=== PATIENT | male | born 1975 | race American Indian/Alaskan Native ===

== ENCOUNTER 2016-10-31 15:25 | Inpatient (IN) | payer MEDICAID ==
[2016-10-31 15:34] VITALS: BMI 35.3
--- NOTE | 2016-10-31 16:08 | RAD ---
HISTORY: Detox/Psy COMPARISON: No prior. TECHNIQUE: Chest PA and lateral FINDINGS: LUNGS: No active pulmonary disease. PLEURA: No significant pleural effusion identified. No pneumothorax apparent. CARDIOVASCULAR: Normal. OSSEOUS STRUCTURES: No significant abnormalities. VISUALIZED UPPER ABDOMEN: Normal. OTHER FINDINGS: None. IMPRESSION: No active disease.
--- NOTE | 2016-10-31 16:34 | C.PDOC ---
History Of Present Illness 41yo male, PMHx includes Heroin abuse, presents to the emergency department pre- screened for detox with complaints of leg swelling; Patient was referred outpatient for pedal edema, and started on lasix that he is taking without relief. Patient notes that he was evaluated by a environmental health manager yesterday and had a stress test, that was positive for ischemic changes. Patient pending approval for echocardiogram and nuclear stress test. States leg swelling continues. Denies nausea/vomiting, chest pain or SOB. On pre-screening questioning it was noted that he is having hallucinations both when under the influence of drugs and when sober. He has had psychiatric hospitalizations in the past. Time Seen by Provider: 10/31/16 15:46 Chief Complaint (Nursing): Substance Abuse History Per: Patient History/Exam Limitations: no limitations Onset/Duration Of Symptoms: Days Current Symptoms Are (Timing): Still Present Past Medical History Reviewed: Historical Data, Nursing Documentation, Vital Signs Vital Signs: Last Vital Signs Temp 98.2 F 10/31/16 15:36 Pulse 83 10/31/16 15:36 Resp 18 10/31/16 15:36 BP 137/80 10/31/16 15:36 Pulse Ox 100 10/31/16 18:15 Family History: States: No Known Family Hx - Social History Hx Alcohol Use: No Hx Substance Use: No - Immunization History Hx Tetanus Toxoid Vaccination: No Hx Influenza Vaccination: No Hx Pneumococcal Vaccination: No Review Of Systems Except As Marked, All Systems Reviewed And Found Negative. Constitutional: Negative for: Fever, Chills Cardiovascular: Positive for: Edema. Negative for: Chest Pain, Palpitations Respiratory: Negative for: Cough, Shortness of Breath Gastrointestinal: Negative for: Nausea, Vomiting Musculoskeletal: Negative for: Back Pain Skin: Negative for: Rash Neurological: Negative for: Weakness, Numbness, Headache, Dizziness Physical Exam - Physical Exam Appears: Non-toxic, No Acute Distress Skin: Warm, Dry, No Rash Head: Atraumatic, Normacephalic Eye(s): bilateral: Normal Inspection, PERRL, EOMI Nose: Normal Neck: Normal ROM Cardiovascular: Rhythm Regular Respiratory: Normal Breath Sounds Gastrointestinal/Abdominal: Normal Exam Back: Normal Inspection Extremity: Pedal Edema (B/L (+)2, pitting.) Neurological/Psych: Oriented x3 ED Course And Treatment - Laboratory Results Result Diagrams: 10/31/16 16:39 06/07/17 16:39 Lab Interpretation: Normal ECG: Interpreted By Me ECG Rhythm: Sinus Rhythm ECG Interpretation: Normal O2 Sat by Pulse Oximetry: 100 Pulse Ox Interpretation: Normal - Radiology CXR: Interpreted by Me CXR Interpretation: Yes: No Acute Disease Reevaluation Time: 18:18 Reassessment Condition: Unchanged (Patient remains comfortable and cooperative in ED.) - Physician Consult Information Time Consulting Physician Contacted: 18:18 Physician Contacted: Kellee Marcelo Outcome Of Conversation: He will admit for medical cardiac clearance and will consult psychiatry. Disposition - Disposition Disposition: HOSPITALIZED Disposition Time: 18:19 Condition: STABLE - POA Present On Arrival: None - Clinical Impression Clinical Impression: Peripheral edema, Cardiac ischemia, Heroin abuse, Hallucinations - Scribe Statement The provider has reviewed the documentation as recorded by the Nehal Bartholomew All medical record entries made by the Dreibe were at my direction and personally dictated by me. I have reviewed the chart and agree that the record accurately reflects my personal performance of the history, physical exam, medical decision making, and the department course for this patient. I have also personally directed, reviewed, and agree with the discharge instructions and disposition.
[2016-10-31 16:43] LABS: BASO % 0.6 % (0.0-2.0); EOS # 0.1 K/uL (0.0-0.7); EOS % 1.7 % (0.0-4.0); HEMATOCRIT 38.4 % (35.0-51.0); LYMPH # 2.1 K/uL (1.0-4.3); LYMPH % 33.3 % (20.0-40.0); MEAN CELL VOLUME 93.7 fL (80.0-94.0); MEAN CORPUSCULAR HGB CONC 33.1 g/dL (33.0-37.0); MEAN PLATELET VOLUME 9.4 fL (7.2-11.7); MONO # 0.5 K/uL (0.0-0.8); MONO % 8.4 % (0.0-10.0); RED CELL DISTRIBUTION WIDTH 15.2 % (11.5-14.5); WHITE BLOOD COUNT 6.4 K/uL (4.8-10.8)
[2016-10-31 16:45] LABS: URINE BILIRUBIN NEGATIVE (NEGATIVE); URINE BLOOD NEGATIVE (NEGATIVE); URINE COLOR Straw (YELLOW); URINE GLUCOSE (UA) NORMAL (Normal); URINE KETONE NEGATIVE (NEGATIVE); URINE LEUKOCYTE ESTERASE NEG Leu/uL (Negative); URINE PROTEIN NEGATIVE (NEGATIVE); URINE UROBILINOGEN NORMAL mg/dL (0.2-1.0)
[2016-10-31 16:51] LABS: CHLORIDE 103 mmol/L (98-107)
[2016-10-31 16:52] LABS: POTASSIUM 3.9 mmol/L (3.6-5.2); SODIUM 140 mmol/L (132-148)
[2016-10-31 16:54] LABS: ALB/GLOB RATIO 1.3 (1.0-2.1); ALKALINE PHOSPHATASE 66 U/L (38-126); ALT/SGPT 30 U/L (21-72); AST/SGOT 26 U/L (17-59); BILIRUBIN,TOTAL 0.6 mg/dL (0.2-1.3); BLOOD UREA NITROGEN 11 mg/dL (9-20); CARBON DIOXIDE 26 mmol/L (22-30); GFR AFRICAN-AMERICAN > 60; GLUCOSE,RANDOM 107 mg/dL (75-110)
[2016-10-31 16:55] LABS: ALCOHOL SERUM < 10 mg/dl (0-10); CALCIUM 8.8 mg/dl (8.6-10.4)
--- NOTE | 2016-10-31 23:07 | CP.PCM.CON ---
History of Present Illness - History of Present Illness History of Present Illness: History Of Present Illness 41yo male, PMHx includes Heroin abuse, presents to the emergency department for chest pain. Chest pain non exertional Chief Complaint (Nursing): Substance Abuse History Per: Patient History/Exam Limitations: no limitations Onset/Duration Of Symptoms: Days Current Symptoms Are (Timing): Still Present Past Medical History Reviewed: Historical Data, Nursing Documentation, Vital Signs Vital Signs: Last Vital Signs Temp 98.2 F 10/31/16 15:36 Pulse 83 10/31/16 15:36 Resp 18 10/31/16 15:36 BP 137/80 10/31/16 15:36 Pulse Ox 100 10/31/16 18:15 Family History: States: No Known Family Hx - Social History Hx Alcohol Use: No Hx Substance Use: No - Immunization History Hx Tetanus Toxoid Vaccination: No Hx Influenza Vaccination: No Hx Pneumococcal Vaccination: No Review Of Systems Except As Marked, All Systems Reviewed And Found Negative. Constitutional: Negative for: Fever, Chills Cardiovascular: Positive for: Edema. Negative for: Chest Pain, Palpitations Respiratory: Negative for: Cough, Shortness of Breath Gastrointestinal: Negative for: Nausea, Vomiting Musculoskeletal: Negative for: Back Pain Skin: Negative for: Rash Neurological: Negative for: Weakness, Numbness, Headache, Dizziness Physical Exam - Physical Exam Appears: Non-toxic, No Acute Distress Skin: Warm, Dry, No Rash Head: Atraumatic, Normacephalic Eye(s): bilateral: Normal Inspection, PERRL, EOMI Nose: Normal Neck: Normal ROM Cardiovascular: Rhythm Regular Respiratory: Normal Breath Sounds Gastrointestinal/Abdominal: Normal Exam Back: Normal Inspection Extremity: Pedal Edema (B/L (+)2, pitting.) Neurological/Psych: Oriented x3 Past Patient History - Past Social History Smoking Status: Light Smoker < 10 Cigarettes Daily - INTEGUMENTARY Other/Comment: right leg cellulitis - MUSCULOSKELETAL/RHEUMATOLOGICAL Hx Falls: No - PSYCHIATRIC Hx Substance Use: Yes (opiates) Meds Allergies/Adverse Reactions: Allergies Allergy/AdvReac Type Severity Reaction Status Date / Time No Known Allergies Allergy Verified 10/31/16 15:47 - Medications Medications: Current Medications Chlordiazepoxide (Librium) 25 mg PO BID [facility] Enoxaparin Sodium (Lovenox) 40 mg SC DAILY [facility] Furosemide (Lasix) 40 mg PO DAILY [facility] Pantoprazole Sodium (Protonix Ec Tab) 40 mg PO DAILY [facility] Thiamine HCl (Vitamin B1 Tab) 100 mg PO DAILY [facility] Results - Vital Signs Recent Vital Signs: Last Vital Signs Temp 99 F 10/31/16 21:46 Pulse 79 10/31/16 21:46 Resp 20 10/31/16 21:46 BP 145/90 10/31/16 21:46 Pulse Ox 97 10/31/16 21:46 - Labs Result Diagrams: 10/31/16 16:39 10/31/16 16:39 Assessment & Plan - Assessment and Plan (Free Text) Assessment: 41 Male with atypical chest pain Check ECHO and stress test
--- NOTE | 2016-10-31 23:42 | CP.PCM.HP ---
Past Patient History - Past Social History Smoking Status: Light Smoker < 10 Cigarettes Daily - INTEGUMENTARY Other/Comment: right leg cellulitis - MUSCULOSKELETAL/RHEUMATOLOGICAL Hx Falls: No - PSYCHIATRIC Hx Substance Use: Yes (opiates) Meds Allergies/Adverse Reactions: Allergies Allergy/AdvReac Type Severity Reaction Status Date / Time No Known Allergies Allergy Verified 10/31/16 15:47 Results - Vital Signs Recent Vital Signs: Last Vital Signs Temp 99 F 10/31/16 21:46 Pulse 79 10/31/16 21:46 Resp 20 10/31/16 21:46 BP 145/90 10/31/16 21:46 Pulse Ox 97 10/31/16 21:46 - Labs Result Diagrams: 10/31/16 16:39 10/31/16 16:39
[2016-11-01] MEDS: Pantoprazole 40 mg EC Tab PO SCH (09:19)
[2016-11-01] MEDS: Enoxaparin 40 mg Syringe SC SCH ×2 (09:19→09:21)
[2016-11-01] MEDS ORDERED: Aluminum Hydroxide/Magnesium Hydroxide Susp (30 mL) PO PRN (10:04)
--- NOTE | 2016-11-01 10:13 | PCM.PSYCH ---
Initial Psychiatric Evaluation - Initial Psychiatric Evaluation Type of Admission: Voluntary Legal Status: Capacity Chief Complaint (in patient's own words): "Withdrawing" History of Present Illness and Precipitating Events: This is a 41 yo AAM, single with 5 children, lives with his mother and unemployed He admits to using "30-40 bags" of IV heroin. He denies all other drug use and alcohol. He claims he has been using for the past 3 years and denies any prior use. He is very poor historian and guarded and evasive. He was also half asleep but also in withdrawal from opiates (COWS>9) He denied psych sxs but he the chart says he has had psych sxs in the past Past psych hx: Denies Family psych hx: Denies Medical hx: Denies Current Medications: Active Medications Generic Name Dose Route Start Last Admin Trade Name Freq PRN Reason Stop Dose Admin Al Hydrox/Mg Hydrox/Simethicone 30 ml 11/01/16 10:04 Maalox 30 Ml PO TID PRN Indigestion / Heartburn Clonidine HCl 0.1 mg 11/01/16 10:04 Catapres PO Q8 PRN COWS Score More or Equal to 5 Enoxaparin Sodium 40 mg 11/01/16 10:00 11/01/16 09:21 Lovenox SC Not Given DAILY [facility] Furosemide 40 mg 11/01/16 10:00 11/01/16 09:19 Lasix PO 40 mg DAILY [facility] Administration Loperamide HCl 2 mg 11/01/16 10:04 Imodium PO Q8 PRN Diarrhea Methadone HCl 20 mg 11/01/16 10:15 Methadone PO 11/05/16 10:01 Q24H [facility] Taper Ondansetron HCl 4 mg 11/01/16 10:04 Zofran Tab PO Q8 PRN Nausea/Vomiting Pantoprazole Sodium 40 mg 11/01/16 10:00 11/01/16 09:19 Protonix Ec Tab PO 40 mg DAILY [facility] Administration Thiamine HCl 100 mg 11/01/16 10:00 11/01/16 09:19 Vitamin B1 Tab PO 100 mg DAILY [facility] Administration Past Psychiatric History - Past Psychiatric History Previous Treatment History: Inpatient (he denied but chart says he had psych hx) Pertinent Medical Hx (Current Medical&Sleep Prob, Allergies): Allergies Allergy/AdvReac Type Severity Reaction Status Date / Time No Known Allergies Allergy Verified 10/31/16 15:47 Furosemide [Lasix] 40 mg PO DAILY 10/31/16 Review of Systems - Psychiatric Psychiatric: Abnormal Sleep Pattern, Anxiety, Irritability. absent: Hallucinations, Homicidal Ideation, Suicidal Ideation Mental Status Examination - Personal Presentation Personal Presentation: Looks older than stated age - Affect Affect: Blunted - Motor Activity Motor Activity: Calm - Reliability in Providing Information Reliability in Providing Information: Poor, due to altered mood - Speech Speech: Organized (slowed) - Mood Mood: Anxious - Formal Thought Process Formal Thought Process: No Impairment - Cognitive Functions Orientation: Person, Place, Situation, Time Sensorium: Alert Attention/Concentration: Easily distracted Abstract Thinking: [place] Estimate of Intelligence: Below average Judgement: Imparied, as evidence by: Poor judgement Memory: Recent impaired, as evidence by: Inability to recall events of the day, Remote impaired as evidenced by: Inability to recall sig life events - Risk Risk: Withdrawal, Diminished functioning - Limitations Limitations: Other DSM 5 DX - DSM 5 DSM 5 Diagnosis: Opioid withdrawal Opioid use d/o -severe - Recommended/Plan of Treatment Treatment Recommendations and Plan of Treatment: Methadone detox Support and psychoeducation Refer to rehab or IOP Consider referring maintenance referral, ie Vivitrol, suboxone or methadone 33 min
--- NOTE | 2016-11-01 18:31 | CP.PCM.PN ---
Objective - Vital Signs/Intake and Output Vital Signs (last 24 hours): Temp Pulse Resp BP Pulse Ox 99.9 F H 82 20 152/84 H 97 11/01/16 15:04 11/01/16 15:04 11/01/16 15:04 11/01/16 15:04 11/01/16 15:04 Intake and Output: 11/01/16 11/01/16 06:59 18:59 Intake Total 500 Balance 500 - Medications Medications: Current Medications Al Hydrox/Mg Hydrox/Simethicone (Maalox 30 Ml) 30 ml PO TID PRN PRN Reason: Indigestion / Heartburn Clonidine HCl (Catapres) 0.1 mg PO Q8 PRN PRN Reason: COWS Score More or Equal to 5 Enoxaparin Sodium (Lovenox) 40 mg SC DAILY [facility] Last Admin: 11/01/16 09:21 Dose: Not Given Furosemide (Lasix) 40 mg PO DAILY [facility] Last Admin: 11/01/16 09:19 Dose: 40 mg Loperamide HCl (Imodium) 2 mg PO Q8 PRN PRN Reason: Diarrhea Methadone HCl (Methadone) 20 mg PO Q24H [facility] PRN Reason: Taper Stop: 11/05/16 10:44 Last Admin: 11/01/16 11:20 Dose: 20 mg Ondansetron HCl (Zofran Tab) 4 mg PO Q8 PRN PRN Reason: Nausea/Vomiting Pantoprazole Sodium (Protonix Ec Tab) 40 mg PO DAILY [facility] Last Admin: 11/01/16 09:19 Dose: 40 mg Thiamine HCl (Vitamin B1 Tab) 100 mg PO DAILY [facility] Last Admin: 11/01/16 09:19 Dose: 100 mg
--- NOTE | 2016-11-01 20:49 | CP.PCM.PN ---
Subjective - Date & Time of Evaluation Date of Evaluation: 11/01/16 Time of Evaluation: 16:30 - Subjective Subjective: Patient seen and evaluated Denies chest pain and dyspnea Review Of Systems Except As Marked, All Systems Reviewed And Found Negative. Constitutional: Negative for: Fever, Chills Cardiovascular: Positive for: Edema. Negative for: Chest Pain, Palpitations Respiratory: Negative for: Cough, Shortness of Breath Gastrointestinal: Negative for: Nausea, Vomiting Musculoskeletal: Negative for: Back Pain Skin: Negative for: Rash Neurological: Negative for: Weakness, Numbness, Headache, Dizziness Physical Exam - Physical Exam Appears: Non-toxic, No Acute Distress Skin: Warm, Dry, No Rash Head: Atraumatic, Normacephalic Eye(s): bilateral: Normal Inspection, PERRL, EOMI Nose: Normal Neck: Normal ROM Cardiovascular: Rhythm Regular Respiratory: Normal Breath Sounds Gastrointestinal/Abdominal: Normal Exam Back: Normal Inspection Extremity: Pedal Edema (B/L (+)2, pitting.) Neurological/Psych: Oriented x3 Objective - Vital Signs/Intake and Output Vital Signs (last 24 hours): Temp Pulse Resp BP Pulse Ox 99.9 F H 82 20 152/84 H 97 11/01/16 15:04 11/01/16 15:04 11/01/16 15:04 11/01/16 15:04 11/01/16 15:04 - Medications Medications: Current Medications Al Hydrox/Mg Hydrox/Simethicone (Maalox 30 Ml) 30 ml PO TID PRN PRN Reason: Indigestion / Heartburn Clonidine HCl (Catapres) 0.1 mg PO Q8 PRN PRN Reason: COWS Score More or Equal to 5 Enoxaparin Sodium (Lovenox) 40 mg SC DAILY [facility] Last Admin: 11/01/16 09:21 Dose: Not Given Furosemide (Lasix) 40 mg PO DAILY [facility] Last Admin: 11/01/16 09:19 Dose: 40 mg Loperamide HCl (Imodium) 2 mg PO Q8 PRN PRN Reason: Diarrhea Methadone HCl (Methadone) 20 mg PO Q24H [facility] PRN Reason: Taper Stop: 11/05/16 10:44 Last Admin: 11/01/16 11:20 Dose: 20 mg Ondansetron HCl (Zofran Tab) 4 mg PO Q8 PRN PRN Reason: Nausea/Vomiting Pantoprazole Sodium (Protonix Ec Tab) 40 mg PO DAILY [facility] Last Admin: 11/01/16 09:19 Dose: 40 mg Thiamine HCl (Vitamin B1 Tab) 100 mg PO DAILY [facility] Last Admin: 11/01/16 09:19 Dose: 100 mg Assessment and Plan - Assessment and Plan (Free Text) Assessment: Patient sheduled for ECHO and stress test
[2016-11-02] MEDS ORDERED: Potassium Chloride 20 mEq ER Tab PO ONE ×2 (10:00→18:00)
[2016-11-02] MEDS: Pantoprazole 40 mg EC Tab PO SCH (10:26)
[2016-11-02] MEDS: Enoxaparin 40 mg Syringe SC SCH (10:29)
[2016-11-02 11:31] LABS: BASO % 0.2 % (0.0-2.0); EOS % 0.1 % (0.0-4.0); HEMATOCRIT 46.7 % (35.0-51.0); LYMPH # 1.9 K/uL (1.0-4.3); LYMPH % 20.7 % (20.0-40.0); MEAN CELL VOLUME 94.1 fL (80.0-94.0); MEAN CORPUSCULAR HEMOGLOBIN 30.8 pg (27.0-31.0); MEAN CORPUSCULAR HGB CONC 32.7 g/dL (33.0-37.0); MEAN PLATELET VOLUME 9.6 fL (7.2-11.7); MONO # 0.7 K/uL (0.0-0.8); RED CELL DISTRIBUTION WIDTH 15.4 % (11.5-14.5)
[2016-11-02 11:33] LABS: CHLORIDE 99 mmol/L (98-107); POTASSIUM 3.3 mmol/L (3.6-5.2); SODIUM 140 mmol/L (132-148)
[2016-11-02 11:35] LABS: AST/SGOT 25 U/L (17-59); BILIRUBIN,TOTAL 0.8 mg/dL (0.2-1.3); CARBON DIOXIDE 26 mmol/L (22-30); GFR AFRICAN-AMERICAN > 60
[2016-11-02 11:36] LABS: ALB/GLOB RATIO 1.3 (1.0-2.1); ALKALINE PHOSPHATASE 84 U/L (38-126); ALT/SGPT 30 U/L (21-72); BLOOD UREA NITROGEN 19 mg/dL (9-20); CALCIUM 9.2 mg/dl (8.6-10.4); GLUCOSE,RANDOM 112 mg/dL (75-110); TOTAL PROTEIN 8.3 g/dL (6.3-8.3)
--- NOTE | 2016-11-02 12:07 | CARD ---
APPROVED REPORT EKG Measurement Heart [id number] ME [id number] <Conclusion> Normal sinus rhythm Normal ECG
--- NOTE | 2016-11-02 12:56 | PCM.PYCHPN ---
Psychiatric Progress Note - Psychiatric Progress Note Patient seen today, length of contact: 16 min Patient Chief Complaint: "OK" Problems Identified/Issues Discussed: The pt is seen, chart reviewed, case discussed with staff. The pt is compliant with medications and reports no side-effects. Symptoms are improving but needs more time to stabilize. After care discussed, support and psychoeducation given. [place] used Medication Change: Yes (methadone detox changes daily) Medical Record Reviewed: Yes Mental Status Examination - Cognitive Function Orientation: Person, Place, Situation, Time Memory: Impaired Attention: Poor Concentration: Poor Association: WNL Fund of Knowledge: Poor - Mood Mood: Anxious - Affect Affect: Blunted - Speech Speech: Soft - Formal Thought Process Formal Thought Process: No Impairment - Suicidal Ideation Suicidal Ideation: No - Homicidal Ideation Homicidal Ideation: No Goal/Treatment Plan - Goal/Treatment Plan Need for Continued Stay: Other Progress Toward Problem(s) and Goals/Treatment Plan: Methadone detox Support and psychoeducation Refer to rehab or IOP Consider referring maintenance referral, ie Vivitrol, suboxone or methadone
[2016-11-02] MEDS ORDERED: Potassium Chloride 20 mEq ER Tab PO STA (13:48)
--- NOTE | 2016-11-02 17:06 | CP.PCM.PN ---
Subjective - Date & Time of Evaluation Date of Evaluation: 11/02/16 Time of Evaluation: 11:00 - Subjective Subjective: clinically same Objective - Vital Signs/Intake and Output Vital Signs (last 24 hours): Temp Pulse Resp BP Pulse Ox 98.8 F 81 20 143/87 96 11/02/16 15:49 11/02/16 15:49 11/02/16 15:49 11/02/16 15:49 11/02/16 15:49 - Medications Medications: Current Medications Al Hydrox/Mg Hydrox/Simethicone (Maalox 30 Ml) 30 ml PO TID PRN PRN Reason: Indigestion / Heartburn Clonidine HCl (Catapres) 0.1 mg PO Q8 PRN PRN Reason: COWS Score More or Equal to 5 Enoxaparin Sodium (Lovenox) 40 mg SC DAILY [facility] Last Admin: 11/02/16 10:29 Dose: Not Given Furosemide (Lasix) 40 mg PO DAILY [facility] Last Admin: 11/02/16 10:29 Dose: 40 mg Loperamide HCl (Imodium) 2 mg PO Q8 PRN PRN Reason: Diarrhea Methadone HCl (Methadone) 15 mg PO Q24H [facility] PRN Reason: Taper Stop: 11/05/16 10:44 Last Admin: 11/02/16 10:25 Dose: 15 mg Ondansetron HCl (Zofran Tab) 4 mg PO Q8 PRN PRN Reason: Nausea/Vomiting Last Admin: 11/02/16 10:26 Dose: 4 mg Pantoprazole Sodium (Protonix Ec Tab) 40 mg PO DAILY [facility] Last Admin: 11/02/16 10:26 Dose: 40 mg Thiamine HCl (Vitamin B1 Tab) 100 mg PO DAILY [facility] Last Admin: 11/02/16 10:26 Dose: 100 mg - Labs Labs: 11/02/16 11:14 11/02/16 11:14 - Constitutional Appears: Well - Head Exam Head Exam: ATRAUMATIC, NORMAL INSPECTION, NORMOCEPHALIC - Eye Exam Eye Exam: EOMI, Normal appearance, PERRL Pupil Exam: NORMAL ACCOMODATION, PERRL - ENT Exam ENT Exam: Mucous Membranes Moist, Normal Exam - Neck Exam Neck Exam: Full ROM, Normal Inspection. absent: Lymphadenopathy - Respiratory Exam Respiratory Exam: Decreased Breath Sounds - Cardiovascular Exam Cardiovascular Exam: REGULAR RHYTHM, +S1, +S2 - GI/Abdominal Exam GI & Abdominal Exam: Soft, Diminished Bowel Sounds - Rectal Exam Rectal Exam: Deferred
--- NOTE | 2016-11-02 17:29 | CARD ---
APPROVED REPORT EXAM: Two-dimensional and M-mode echocardiogram with Doppler and color Doppler. Other Information Quality : GoodRhythm : INDICATION Chest Pain HEROIN ABUSE M-Mode DIMENSIONS RVDd1.95 (2.1-3.2cm)Left Atrium (MM)3.55 (2.5-4.0cm) IVSd1.41 (0.7-1.1cm)Aortic Root2.89 (2.2-3.7cm) LVDd5.31 (4.0-5.6cm)Aortic Cusp Exc.2.15 (1.5-2.0cm) PWd1.44 (0.7-1.1cm)FS (%) 29 % LVDs3.75 (2.0-3.8cm)LVEF (%)56 (>50%) Aortic Valve AoV Peak Tibwnlcj048.7cm/Mariano Peak GR.7mmHg Mitral Valve MV E Sdsfczlc99.7cm/sMV A Ngtnxsrc98.7cm/sE/A ratio1.4 TDI E/Lateral E'0.0E/Medial E'0.0 Tricuspid Valve TR Peak Vvdscgti757ik/sTR Peak Gr.38chVoMAUF97naHx LEFT VENTRICLE The left ventricle is normal size. There is borderline concentric left ventricular hypertrophy. The left ventricular function is normal. The left ventricular ejection fraction is within the normal range. There is normal LV segmental wall motion. Transmitral Doppler flow pattern is Grade I-abnormal relaxation pattern. RIGHT VENTRICLE The right ventricle is normal size. There is normal right ventricular wall thickness. The right ventricular systolic function is normal. ATRIA The left atrium size is normal. The right atrium size is normal. AORTIC VALVE The aortic valve is not well visualized. MITRAL VALVE The mitral valve is not well visualized. TRICUSPID VALVE There is no pulmonary hypertension. GREAT VESSELS The aortic root is normal in size. PERICARDIAL EFFUSION There is a trace circumferential pericardial effusion. <Conclusion> Poor Echo window The left ventricle is normal size. There is borderline concentric left ventricular hypertrophy. The left ventricular function is normal. The left ventricular ejection fraction is within the normal range. There is normal LV segmental wall motion. Transmitral Doppler flow pattern is Grade I-abnormal relaxation pattern.
--- NOTE | 2016-11-02 21:09 | CARD ---
APPROVED REPORT Protocol: PHARMACOLOGICAL STRESS Test Type: LEXISCAN Test Indications: ISCHEMIA Medications: LIST SCAN Medical History: ISCHEMIA Target HR: 181 bpm Resting ECG: normal Resting Heart Rate: 76 bpm Resting Blood Pressure: 140/70mmHg submaximum (85%): 154 bpm TEST SUMMARY [id number]. INFUSIONDOSE 100:[id number]/70.0. [id number]/70.0. PROCEDURE Pharmacologic stress testing was performed using 0.4mg per 5ml of regadenoson given intravenously over 7-10 seconds. POST EXERCISE Reason for Termination: Lexiscan protocol completed Target HR: No Max HR: 74 bpm 60% of Maximum Predicted HR: 181 bpm Exercise duration: 00:30 min:sec, 0 Stage Exercise capacity: 1.0METs Max Blood Pressure: 140/70mmHg Blood Pressure response to exercise: normal resting BP - appropriate response Heart Rate response to exercise: appropriate Chest Pain: No, none Angina index: 0 Arrhythmia: No, none ST Change: No, none Deviation: 0 mm INTERPRETATION Stress EKG Conclusion: Nuclear report to follow EXAM: Myocardial Perfusion STRESS/REST Imaging Protocol The imaging protocol used to acquire images was Stress Tc-99m/rest Tc-99m 1 day Stress Spect myocardial perfusion imaging was performed in supine position 38 minutes following the injection of 12.8 mCi of Tc-99 Myoview. Gated Rest Spect was performed 39 minutes after intravenous 32.4 mCi Tc-99 Myoview injection. The images were gated to evaluate regional wall motion and calculate ventricular ejection fraction.Images were reconstructed using backfilter projection method in short horizontal and verticle long axis. Spect slices were generated. RESTING DATA MOC281.02fgHA6.60L/min ESV75.00mlMyocardial Dcih463.00g Av. Heart Rate67.00bpm EF53.00% STRESS DATA KAV604.92oyET8.80L/min ESV57.00mlMyocardial Hpnj853.00g EF65.00% Regional WT score at stress:0.00 Regional WM score at stress:0.00 Summed WT score at stress:0.00 Av. Heart Rate83.00bpmSummed WM score at stress:2.00 LV Perf. Quant 17 Seg. SSS3.00 17 Seg. SRS5.00 17 Seg. SDS0.00 Stress Defect Extent (% LAD)0.00Rest Defect Extent (% LAD)0.00Rev. Defect Extent (% LAD)0.00 Stress Defect Extent (% LCX)30.00Rest Defect Extent (% LCX)43.80Rev. Defect Extent (% LCX)8.80 Stress Defect Extent (% RCA)0.00Rest Defect Extent (% RCA)0.00Rev. Defect Extent (% RCA)0.00 Stress Defect Extent (% ERLIN)5.20Rest Defect Extent (% ERLIN)7.80Rev. Defect Extent (% ERLIN)1.50 Other Information Quality:Good IMPRESSION Normal Myocardial Perfusion exercise stress study Left Ventricle LV Size/Shape: The left ventricle is normal size. LV Function:Left ventricle systolic function is normal. The Ejection Fraction is >55%. Conclusion 1. Normal Lexiscan nuclear stress test
--- NOTE | 2016-11-02 21:46 | CP.PCM.PN ---
Subjective - Date & Time of Evaluation Date of Evaluation: 11/02/16 Time of Evaluation: 16:00 - Subjective Subjective: Patient s/p ECHO and stress test Normal stress test and normal EF No further cardiac work up planned Recommend medical management Objective - Vital Signs/Intake and Output Vital Signs (last 24 hours): Temp Pulse Resp BP Pulse Ox 98.8 F 81 20 143/87 96 11/02/16 15:49 11/02/16 15:49 11/02/16 15:49 11/02/16 15:49 11/02/16 15:49 - Medications Medications: Current Medications Al Hydrox/Mg Hydrox/Simethicone (Maalox 30 Ml) 30 ml PO TID PRN PRN Reason: Indigestion / Heartburn Clonidine HCl (Catapres) 0.1 mg PO Q8 PRN PRN Reason: COWS Score More or Equal to 5 Enoxaparin Sodium (Lovenox) 40 mg SC DAILY [facility] Last Admin: 11/02/16 10:29 Dose: Not Given Furosemide (Lasix) 40 mg PO DAILY [facility] Last Admin: 11/02/16 10:29 Dose: 40 mg Loperamide HCl (Imodium) 2 mg PO Q8 PRN PRN Reason: Diarrhea Methadone HCl (Methadone) 15 mg PO Q24H [facility] PRN Reason: Taper Stop: 11/05/16 10:44 Last Admin: 11/02/16 10:25 Dose: 15 mg Ondansetron HCl (Zofran Tab) 4 mg PO Q8 PRN PRN Reason: Nausea/Vomiting Last Admin: 11/02/16 10:26 Dose: 4 mg Pantoprazole Sodium (Protonix Ec Tab) 40 mg PO DAILY [facility] Last Admin: 11/02/16 10:26 Dose: 40 mg Thiamine HCl (Vitamin B1 Tab) 100 mg PO DAILY [facility] Last Admin: 11/02/16 10:26 Dose: 100 mg
[2016-11-03] MEDS: Pantoprazole 40 mg EC Tab PO SCH (10:32)
[2016-11-03] MEDS: Enoxaparin 40 mg Syringe SC SCH (10:32)
--- NOTE | 2016-11-03 12:55 | CP.PCM.PN ---
Subjective - Date & Time of Evaluation Date of Evaluation: 11/03/16 Time of Evaluation: 11:00 - Subjective Subjective: clinically same Objective - Vital Signs/Intake and Output Vital Signs (last 24 hours): Temp Pulse Resp BP Pulse Ox 98.5 F 73 20 149/89 97 11/03/16 08:03 11/03/16 08:03 11/03/16 08:03 11/03/16 10:32 11/03/16 08:03 Intake and Output: 11/03/16 11/03/16 06:59 18:59 Intake Total 500 Balance 500 - Medications Medications: Current Medications Al Hydrox/Mg Hydrox/Simethicone (Maalox 30 Ml) 30 ml PO TID PRN PRN Reason: Indigestion / Heartburn Clonidine HCl (Catapres) 0.1 mg PO Q8 PRN PRN Reason: COWS Score More or Equal to 5 Enoxaparin Sodium (Lovenox) 40 mg SC DAILY [facility] Last Admin: 11/03/16 10:32 Dose: Not Given Furosemide (Lasix) 40 mg PO DAILY [facility] Last Admin: 11/03/16 10:32 Dose: 40 mg Loperamide HCl (Imodium) 2 mg PO Q8 PRN PRN Reason: Diarrhea Methadone HCl (Methadone) 10 mg PO Q24H [facility] PRN Reason: Taper Stop: 11/05/16 10:44 Last Admin: 11/03/16 10:32 Dose: 10 mg Ondansetron HCl (Zofran Tab) 4 mg PO Q8 PRN PRN Reason: Nausea/Vomiting Last Admin: 11/03/16 10:32 Dose: 4 mg Pantoprazole Sodium (Protonix Ec Tab) 40 mg PO DAILY [facility] Last Admin: 11/03/16 10:32 Dose: 40 mg Thiamine HCl (Vitamin B1 Tab) 100 mg PO DAILY [facility] Last Admin: 11/03/16 10:31 Dose: 100 mg - Constitutional Appears: Well - Head Exam Head Exam: ATRAUMATIC, NORMAL INSPECTION, NORMOCEPHALIC - Eye Exam Eye Exam: EOMI, Normal appearance, PERRL Pupil Exam: NORMAL ACCOMODATION, PERRL - ENT Exam ENT Exam: Mucous Membranes Moist, Normal Exam - Neck Exam Neck Exam: Full ROM, Normal Inspection. absent: Lymphadenopathy - Respiratory Exam Respiratory Exam: Decreased Breath Sounds - Cardiovascular Exam Cardiovascular Exam: REGULAR RHYTHM, +S1, +S2 - GI/Abdominal Exam GI & Abdominal Exam: Soft, Diminished Bowel Sounds - Rectal Exam Rectal Exam: Deferred
[2016-11-03] MEDS ORDERED: Potassium Chloride 20 mEq ER Tab PO STA (20:54)
[2016-11-04 08:14] LABS: BASO % 0.4 % (0.0-2.0); EOS % 0.2 % (0.0-4.0); HEMATOCRIT 46.5 % (35.0-51.0); LYMPH # 2.9 K/uL (1.0-4.3); LYMPH % 27.5 % (20.0-40.0); MEAN CELL VOLUME 92.9 fL (80.0-94.0); MEAN CORPUSCULAR HGB CONC 33.4 g/dL (33.0-37.0); MEAN PLATELET VOLUME 9.2 fL (7.2-11.7); MONO # 1.3 K/uL (0.0-0.8); MONO % 12.5 % (0.0-10.0); WHITE BLOOD COUNT 10.4 K/uL (4.8-10.8)
[2016-11-04 08:34] LABS: CHLORIDE 100 mmol/L (98-107); SODIUM 137 mmol/L (132-148)
[2016-11-04 08:36] LABS: ALB/GLOB RATIO 1.3 (1.0-2.1); ALKALINE PHOSPHATASE 83 U/L (38-126); AST/SGOT 16 U/L (17-59); BILIRUBIN,TOTAL 1.1 mg/dL (0.2-1.3); CARBON DIOXIDE 26 mmol/L (22-30); GFR AFRICAN-AMERICAN > 60; TOTAL PROTEIN 7.7 g/dL (6.3-8.3)
[2016-11-04 08:37] LABS: ALT/SGPT 25 U/L (21-72); BLOOD UREA NITROGEN 14 mg/dL (9-20); CALCIUM 8.8 mg/dl (8.6-10.4); GLUCOSE,RANDOM 105 mg/dL (75-110)
[2016-11-04] MEDS: Pantoprazole 40 mg EC Tab PO SCH (10:05)
[2016-11-04] MEDS: Enoxaparin 40 mg Syringe SC SCH (10:11)
--- NOTE | 2016-11-04 15:39 | CP.PCM.PN ---
Subjective - Date & Time of Evaluation Date of Evaluation: 11/04/16 Time of Evaluation: 09:05 - Subjective Subjective: clinically same Objective - Vital Signs/Intake and Output Vital Signs (last 24 hours): Temp Pulse Resp BP Pulse Ox 98.8 F 63 20 138/85 98 11/03/16 23:50 11/03/16 23:50 11/03/16 23:50 11/04/16 10:05 11/03/16 23:50 - Medications Medications: Current Medications Al Hydrox/Mg Hydrox/Simethicone (Maalox 30 Ml) 30 ml PO TID PRN PRN Reason: Indigestion / Heartburn Clonidine HCl (Catapres) 0.1 mg PO Q8 PRN PRN Reason: COWS Score More or Equal to 5 Enoxaparin Sodium (Lovenox) 40 mg SC DAILY [facility] Last Admin: 11/04/16 10:11 Dose: Not Given Furosemide (Lasix) 40 mg PO DAILY [facility] Last Admin: 11/04/16 10:05 Dose: 40 mg Loperamide HCl (Imodium) 2 mg PO Q8 PRN PRN Reason: Diarrhea Methadone HCl (Methadone) 5 mg PO Q24H [facility] PRN Reason: Taper Stop: 11/05/16 10:44 Last Admin: 11/04/16 10:05 Dose: 5 mg Ondansetron HCl (Zofran Tab) 4 mg PO Q8 PRN PRN Reason: Nausea/Vomiting Last Admin: 11/03/16 10:32 Dose: 4 mg Pantoprazole Sodium (Protonix Ec Tab) 40 mg PO DAILY [facility] Last Admin: 11/04/16 10:05 Dose: 40 mg Thiamine HCl (Vitamin B1 Tab) 100 mg PO DAILY [facility] Last Admin: 11/04/16 10:59 Dose: 100 mg Tramadol HCl (Ultram) 50 mg PO Q6 PRN PRN Reason: Pain, severe (8-10) Last Admin: 11/03/16 18:47 Dose: 50 mg - Labs Labs: 11/04/16 08:06 11/04/16 08:06
[2016-11-05 08:53] VITALS: BP 131/85; PULSE 58; RESP 18; TEMP 98.4; O2SAT 97
[2016-11-05] MEDS: Enoxaparin 40 mg Syringe SC SCH (09:19)
[2016-11-05] MEDS: Pantoprazole 40 mg EC Tab PO SCH (09:19)
[2016-11-05 11:28] LABS: BASO % 0.4 % (0.0-2.0); EOS % 0.4 % (0.0-4.0); HEMATOCRIT 48.4 % (35.0-51.0); LYMPH % 31.9 % (20.0-40.0); MEAN CELL VOLUME 92.6 fL (80.0-94.0); MEAN CORPUSCULAR HEMOGLOBIN 30.6 pg (27.0-31.0); MEAN PLATELET VOLUME 9.7 fL (7.2-11.7); MONO % 11.2 % (0.0-10.0); NRBC % 0.1 % (0.0-2.0); RED CELL DISTRIBUTION WIDTH 14.9 % (11.5-14.5); WHITE BLOOD COUNT 9.3 K/uL (4.8-10.8)
--- NOTE | 2016-11-05 11:49 | CP.PCM.PN ---
Subjective - Date & Time of Evaluation Date of Evaluation: 11/05/16 Time of Evaluation: 11:49 - Subjective Subjective: 41 Y/O MALE SEEN AND EXAMINED ADMITTED FOR CP, HEROINE ABUSE NORMAL STRESS TEST AND ECHO- NORMAL EF PT CLEARED BY DR LEDESMA, DR HIGGINS METHADONE DETOX SUPPORT AND PSYCHOEDUCATION REHAB INFO PROVIDED F/U W/DR GOODMAN ON WED AGREE W/POC, VERBALIZE UNDERSTANDING Objective - Vital Signs/Intake and Output Vital Signs (last 24 hours): Temp Pulse Resp BP Pulse Ox 98.4 F 58 L 18 131/85 97 11/05/16 07:45 11/05/16 07:45 11/05/16 07:45 11/05/16 09:19 11/05/16 07:45 - Medications Medications: Current Medications Al Hydrox/Mg Hydrox/Simethicone (Maalox 30 Ml) 30 ml PO TID PRN PRN Reason: Indigestion / Heartburn Clonidine HCl (Catapres) 0.1 mg PO Q8 PRN PRN Reason: COWS Score More or Equal to 5 Enoxaparin Sodium (Lovenox) 40 mg SC DAILY [facility] Last Admin: 11/05/16 09:19 Dose: Not Given Furosemide (Lasix) 40 mg PO DAILY [facility] Last Admin: 11/05/16 09:19 Dose: 40 mg Loperamide HCl (Imodium) 2 mg PO Q8 PRN PRN Reason: Diarrhea Ondansetron HCl (Zofran Tab) 4 mg PO Q8 PRN PRN Reason: Nausea/Vomiting Last Admin: 11/03/16 10:32 Dose: 4 mg Pantoprazole Sodium (Protonix Ec Tab) 40 mg PO DAILY [facility] Last Admin: 11/05/16 09:19 Dose: 40 mg Thiamine HCl (Vitamin B1 Tab) 100 mg PO DAILY [facility] Last Admin: 11/05/16 09:20 Dose: 100 mg Tramadol HCl (Ultram) 50 mg PO Q6 PRN PRN Reason: Pain, severe (8-10) Last Admin: 11/03/16 18:47 Dose: 50 mg - Labs Labs: 11/05/16 11:16 11/04/16 08:06
[2016-11-05 11:50] LABS: CHLORIDE 99 mmol/L (98-107)
[2016-11-05 11:51] LABS: POTASSIUM 3.6 mmol/L (3.6-5.2); SODIUM 138 mmol/L (132-148)
[2016-11-05 11:53] LABS: ALB/GLOB RATIO 1.2 (1.0-2.1); AST/SGOT 20 U/L (17-59); BILIRUBIN,TOTAL 1.2 mg/dL (0.2-1.3); BLOOD UREA NITROGEN 13 mg/dL (9-20); CARBON DIOXIDE 27 mmol/L (22-30); GFR AFRICAN-AMERICAN > 60; TOTAL PROTEIN 8.2 g/dL (6.3-8.3)
[2016-11-05 11:54] LABS: ALKALINE PHOSPHATASE 84 U/L (38-126); ALT/SGPT 17 U/L (21-72); CALCIUM 9.1 mg/dl (8.6-10.4); GLUCOSE,RANDOM 126 mg/dL (75-110)
== END 2016-11-05 13:02 | disposition home or self-care (01) | DRG 143 ==
LOC: C.ER 15:25 → C.9E 19:06 → INTOOBSV 19:06 → C.6T 20:27 → OBSVTOIN 11-02 15:40
PROVIDERS: ADMIT Internal Medicine Nephrology; ATTEND Internal Medicine Nephrology
PROC: HZ2ZZZZ Detoxification Services for Substance Abuse Treatment (ICD-10-PCS; principal; 2016-11-02)
PROC: HZ56ZZZ Individual Psychotherapy for Substance Abuse Treatment, Psychoeducation (ICD-10-PCS; 2016-11-02)
PROC: HZ59ZZZ Individual Psychotherapy for Substance Abuse Treatment, Supportive (ICD-10-PCS; 2016-11-02)
DX: R07.89 Other chest pain (principal); L03.115 Cellulitis of right lower limb; F11.10 Opioid abuse, uncomplicated; F17.210 Nicotine dependence, cigarettes, uncomplicated; R12 Heartburn

== ENCOUNTER 2017-09-06 21:22 | Inpatient (IN) | payer MEDICAID ==
[2017-09-06 21:22] VITALS: BMI 35.3
--- NOTE | 2017-09-06 21:48 | C.PDOC ---
History Of Present Illness Patient presents for heroin detox. Patient states last use was 2 hours ago. Denies any physical complaints. Time Seen by Provider: 09/06/17 21:48 Chief Complaint (Nursing): Substance Abuse History Per: Patient History/Exam Limitations: no limitations Onset/Duration Of Symptoms: Hrs Current Symptoms Are (Timing): Still Present Suicide/Self Injury Attempted (Context): None Modifying Factor(s): Other (Heroin) Severity: None Pain Scale Rating Of: 0 Associated Symptoms: denies: Suicidal Thoughts, Suicidal Plan Involuntary Hold By: None Recent travel outside of the [place]: No Additional History Per: Family Past Medical History Reviewed: Historical Data, Nursing Documentation, Vital Signs Vital Signs: Last Vital Signs Temp 98.4 F 09/06/17 21:36 Pulse 96 H 09/06/17 21:36 Resp 14 09/06/17 21:36 BP 132/85 09/06/17 21:36 Pulse Ox 96 09/06/17 22:21 - Medical History PMH: No Chronic Diseases - [facility] Procedures DETOXIFICATION SERVICES FOR SUBSTANCE ABUSE TREATMENT (11/02/16) INDIV PSYCHOTHERAPY FOR SUBSTANCE ABUSE TREATMENT, SUPPORT (11/02/16) INDIV PSYCHOTHERAPY FOR SUBSTANCE ABUSE, PSYCHOEDUCATION (11/02/16) Family History: States: No Known Family Hx - Social History Hx Alcohol Use: No Hx Substance Use: Yes (opiates) - Immunization History Hx Tetanus Toxoid Vaccination: No Hx Influenza Vaccination: No Hx Pneumococcal Vaccination: No Review Of Systems Constitutional: Negative for: Fever, Chills Cardiovascular: Negative for: Chest Pain Respiratory: Negative for: Shortness of Breath Gastrointestinal: Negative for: Nausea, Vomiting, Abdominal Pain, Diarrhea Skin: Negative for: Rash Neurological: Negative for: Weakness, Numbness Psych: Negative for: Suicidal ideation Physical Exam - Physical Exam Appears: Non-toxic, No Acute Distress Skin: Warm, Dry Head: Normacephalic Eye(s): bilateral: Normal Inspection Oral Mucosa: Moist Neck: Trachea Midline, Supple Chest: Symmetrical, No Tenderness Cardiovascular: Rhythm Regular Respiratory: No Decreased Breath Sounds, No Rales, No Rhonchi, No Wheezing Gastrointestinal/Abdominal: Soft, No Tenderness, No Distention Extremity: Normal ROM Extremity: Bilateral: Normal Color And Temperature, Normal ROM Neurological/Psych: Oriented x3 (Awake and alert), Normal Speech ED Course And Treatment - Laboratory Results Result Diagrams: 09/06/17 22:08 09/06/17 22:08 O2 Sat by Pulse Oximetry: 96 (RA) Pulse Ox Interpretation: Normal Progress Note: Ordered blood work and urinalysis. Crisis notified. Disposition Discussed With Dr.: Tawanna Arevalo Comment: accepted the pt on his service and took over the care at 12:19 AM Doctor Will See Patient In The: Hospital Counseled Patient/Family Regarding: Studies Performed, Diagnosis - Disposition Disposition: HOSPITALIZED Disposition Time: 21:48 Condition: FAIR Forms: [employer] [facility] (Thai) - POA Present On Arrival: None - Clinical Impression Clinical Impression: Opioid abuse, Heroin abuse - Scribe Statement The provider has reviewed the documentation as recorded by the Scribe Giovana Zhu All medical record entries made by the Scribe were at my direction and personally dictated by me. I have reviewed the chart and agree that the record accurately reflects my personal performance of the history, physical exam, medical decision making, and the department course for this patient. I have also personally directed, reviewed, and agree with the discharge instructions and disposition.[email or web address] Decision To Admit - Pt Status Changed To: Hospital Disposition Of: Inpatient - Admit Certification Admit to Inpatient:: After my assessment, the patient will require hospitalization for at least two midnights. This is because of the severity of symptoms shown, intensity of services needed, and/or the medical risk in this patient being treated as an outpatient. - InPatient: Physician Admission Certification: I certify that this patient requires 2 or more midnights of care for the following reason:: After my assessment, the patient will require hospitalization for at least two midnights. This is because of the severity of symptoms shown, intensity of services needed, and/or the medical risk in this patient being treated as an outpatient. - . Bed Request Type: Detox Admitting Physician: Tawanna Arevalo Patient Diagnosis: Opioid abuse, Heroin abuse
[2017-09-06 22:14] LABS: BASO % 0.5 % (0.0-2.0); EOS # 0.1 K/uL (0.0-0.7); EOS % 1.2 % (0.0-4.0); HEMOGLOBIN 12.9 g/dL (12.0-18.0); LYMPH # 2.4 K/uL (1.0-4.3); MEAN CELL VOLUME 94.6 fL (80.0-94.0); MEAN CORPUSCULAR HEMOGLOBIN 31.6 pg (27.0-31.0); MEAN CORPUSCULAR HGB CONC 33.4 g/dL (33.0-37.0); MEAN PLATELET VOLUME 9.3 fL (7.2-11.7); MONO # 0.7 K/uL (0.0-0.8); MONO % 9.2 % (0.0-10.0); NEUT # 4.2 K/uL (1.8-7.0); NEUT % 56.1 % (50.0-75.0); NRBC % 0.2 % (0.0-2.0); RBC 4.08 Mil/uL (4.40-5.90); RED CELL DISTRIBUTION WIDTH 16.1 % (11.5-14.5); WHITE BLOOD COUNT 7.4 K/uL (4.8-10.8)
[2017-09-06 22:16] LABS: URINE BILIRUBIN NEGATIVE (NEGATIVE); URINE BLOOD NEGATIVE (NEGATIVE); URINE CLARITY Clear (Clear); URINE COLOR Yellow (YELLOW); URINE GLUCOSE (UA) NORMAL (Normal); URINE LEUKOCYTE ESTERASE NEG Leu/uL (Negative); URINE PROTEIN NEGATIVE (NEGATIVE)
[2017-09-06 22:27] LABS: ALB/GLOB RATIO 1.2 (1.0-2.1); ALBUMIN 4.3 g/dL (3.5-5.0); ALT/SGPT 24 U/L (21-72); AST/SGOT 32 U/L (17-59); BLOOD UREA NITROGEN 15 mg/dL (9-20); GFR AFRICAN-AMERICAN > 60; GFR NON-AFRICAN AMERICAN > 60
[2017-09-06 22:29] LABS: BARBITURATES, UR NEGATIVE (NEGATIVE); BENZODIAZEPINES, UR NEGATIVE (NEGATIVE); PHENCYCLIDINE, UR NEGATIVE (NEGATIVE)
[2017-09-06 22:36] LABS: OPIATES, UR POSITIVE (NEGATIVE)
--- NOTE | 2017-09-07 02:26 | PCM.BM ---
<Shiloh James - Last Filed: 09/07/17 02:25> Treatment Plan Problems - Problems identified on initial assessmt OPIATE DEPENDENCE Date Initiated: 09/07/17 Time Initiated: 02:26 Assessment reference: NA Status: Active Treatment assets and liabiliti Patient Assests: ADL independent Patient Liabilities: substance abuse - Milieu Protocol Maintain good personal hygiene: daily Encourage regular showers, daily Remind patient to perform daily oral care, daily Assist patient to perform ADL's Maintain personal safety: every shift Educate patient to report safety concerns to staff, every shift Monitor environment for contraband/sharps Medication safety: Monitor for expected outcome, potential side effects: every shift, Assess barriers to learning: every shift, Assess readiness for medication education: every shift <Ian Segovia - Last Filed: 09/09/17 13:21> - Diagnosis (1) Opioid use disorder, severe, dependence Status: Acute Interventions: 09/09/17 13:21 * Assess 7x/week regarding severity of withdrawal * Educate regarding risks, benefits, side effects and alternatives of medications * Use Motivational Interviewing for abstinence * Use CBT for relapse prevention * Medication management for withdrawal symptoms * Encourage medication assisted treatment *
--- NOTE | 2017-09-07 11:52 | PCM.PSYCH ---
Initial Psychiatric Evaluation - Initial Psychiatric Evaluation Type of Admission: Voluntary Legal Status: Capacity Chief Complaint (in patient's own words): I need help.' History of Present Illness and Precipitating Events: Pt is 31 yr old male, who is currently unemployed was taken to the ED by his , to get help in opioid detox. As per the ED note, pt reported that he needs detox from Opioids, which he calls Roxies. He said that he crushes up 5-10 pills and sniffs them. He also reports of abusing few bags of dejah. Pt said that he has detoxed twice before and was unsuccessful. Pt was spoke with about going to rehab once his detox is complete. Pts was supportive. 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 Pt has been for four years and has four children. Pt said that he needs to get off of drugs for the sake of his children and his health. Pt has Edema in both legs. Pt denied taking medication for anything at this time however he did report a hx of mental illness. Pt said that he is not the type of person who would destroy any property or assualt others. However he does have a hx of incarcerations for such. Patient reports of withdrawal symptoms including headaches, anxiety, nausea and cramps. He reports depressed and anxious mood but denies any feelings of hopelessness and helplessness. He denies any suicidal ideation or homicidal ideation. He denies any auditory or visual hallucinations or any psychotic symptoms. 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) Past Psychiatric History - Past Psychiatric History Previous Treatment History: Inpatient Pertinent Medical Hx (Current Medical&Sleep Prob, Allergies): Allergies Allergy/AdvReac Type Severity Reaction Status Date / Time No Known Allergies Allergy Verified 09/06/17 21:40 Review of Systems - Review of Systems All systems: reviewed and no additional remarkable complaints except - Psychiatric Psychiatric: Anxiety, Irritability Mental Status Examination - Personal Presentation Personal Presentation: Looks stated age - Affect Affect: Constricted - Motor Activity Motor Activity: Calm - Reliability in Providing Information Reliability in Providing Information: Good - Speech Speech: Organized - Mood Mood: Anxious - Formal Thought Process Formal Thought Process: No Impairment - Obsessions/Compulsions Obsessions: No Compulsions: No - Cognitive Functions Orientation: Person, Place, Situation, Time Sensorium: Alert Attention/Concentration: Attentive Abstract Thinking: [place] Estimate of Intelligence: Below average Judgement: Imparied, as evidence by: Poor judgement, Intact, as evidence by: Insight regarding need for hospitalization - Risk Risk: Withdrawal, Diminished functioning - Limitations Limitations: Living alone DSM 5 DX - DSM 5 DSM 5 Diagnosis: Opioid use disorder severe Opioid withdrawal - Recommended/Plan of Treatment Treatment Recommendations and Plan of Treatment: Opioid use disorder severe CBT Psychoeducation Supportive therapy, individual therapy Use [place] for abstinence Opioid withdrawal CBT Psychoeducation Supportive therapy, individual therapy Clonidine when necessary Start subutex taper Start prn meds - Smoking Cessation Smoking Cessation Initiated: No
[2017-09-07] MEDS ORDERED: Buprenorphine Hydrochloride 2 mg SL ONE ×2 (18:31→19:32)
[2017-09-08] MEDS ORDERED: Aluminum Hydroxide/Magnesium Hydroxide Susp (30 mL) PO PRN (08:57)
[2017-09-08] MEDS: Buprenorphine Hydrochloride 2 mg SL SCH (09:42)
--- NOTE | 2017-09-08 10:41 | PCM.PYCHPN ---
Psychiatric Progress Note - Psychiatric Progress Note Patient seen today, length of contact: 16 min Patient Chief Complaint: I am withdrawing.' Problems Identified/Issues Discussed: Patient seen and evaluated, chart reviewed and discussed with the nurse. Patient remained sleepy throughout the evaluation. He still reports withdrawal symptoms including headaches, cramps and sweating. He reports irritable mood but denies any feelings of hopelessness and helplessness. He denies any SI/HI/ AVH. Patient remained isolated, confined and withdrawn. He is taking medication and denies any side effects. He needs more time for stabilization. Supportive therapy and psychoeducation were given. Medication Change: Yes (subutex taper) Medical Record Reviewed: Yes Mental Status Examination - Cognitive Function Orientation: Person, Place, Situation, Time Memory: Intact Attention: WNL Concentration: Poor Association: WNL Fund of Knowledge: Poor - Mood Mood: Anxious - Affect Affect: Constricted - Speech Speech: Appropriate - Language Language: Word Retrieval - Formal Thought Process Formal Thought Process: No Impairment - Suicidal Ideation Suicidal Ideation: No - Homicidal Ideation Homicidal Ideation: No Goal/Treatment Plan - Goal/Treatment Plan Need for Continued Stay: Severe depression anxiety, Severe functional impairment Progress Toward Problem(s) and Goals/Treatment Plan: Opioid use disorder severe CBT Psychoeducation Supportive therapy, individual therapy Use [place] for abstinence Opioid withdrawal CBT Psychoeducation Supportive therapy, individual therapy Clonidine when necessary Subutex taper prn meds - Smoking Cessation Smoking Cessation Initiated: No
[2017-09-09] MEDS ORDERED: Buprenorphine Hydrochloride 2 mg SL SCH (08:57)
[2017-09-09] MEDS: Buprenorphine Hydrochloride 2 mg SL SCH (09:57)
--- NOTE | 2017-09-09 10:46 | RAD ---
Chest x-ray single frontal view History: Medical clearance. Comparison: 10/31/2016 Findings No focal infiltrate or effusion. Heart size within normal limits. Impression No focal infiltrate or effusion.
--- NOTE | 2017-09-09 14:06 | PCM.PYCHPN ---
Psychiatric Progress Note - Psychiatric Progress Note Patient seen today, length of contact: 16 min Patient Chief Complaint: "I still cannot eat." Problems Identified/Issues Discussed: The pt is seen, chart reviewed, case discussed with staff. Patient states he slept better last night. He states he still has no appetite and cannot eat anything. Patient states his mood is okay. Support given, CBT and [place] used briefly No new symptoms reported, improving slowly and needs more time No SEs from medications, risks discussed. Medication Change: Yes (subutex taper) Medical Record Reviewed: Yes Mental Status Examination - Cognitive Function Orientation: Person, Place, Situation, Time Memory: Intact Attention: WNL Concentration: Poor Association: WNL Fund of Knowledge: Poor - Mood Mood: Neutral - Affect Affect: Flat - Speech Speech: Appropriate - Language Language: Word Retrieval - Formal Thought Process Formal Thought Process: No Impairment - Suicidal Ideation Suicidal Ideation: No - Homicidal Ideation Homicidal Ideation: No Goal/Treatment Plan - Goal/Treatment Plan Need for Continued Stay: Severe depression anxiety, Severe functional impairment Progress Toward Problem(s) and Goals/Treatment Plan: Continue Subutex taper Support and psychoeducation daily Attend groups and activities daily After care planning by SW After care discussed
[2017-09-10] MEDS: Buprenorphine Hydrochloride 2 mg SL SCH (10:00)
--- NOTE | 2017-09-10 14:10 | PCM.PYCHPN ---
Psychiatric Progress Note - Psychiatric Progress Note Patient seen today, length of contact: 16 min Patient Chief Complaint: "I am improving." Problems Identified/Issues Discussed: The pt is seen, chart reviewed, case discussed with staff. Patient states he slept okay. His appetite has improved. Support given, CBT and [place] used briefly No new symptoms reported, improving slowly and needs more time No SEs from medications, risks discussed. Medication Change: Yes (subutex taper) Medical Record Reviewed: Yes Mental Status Examination - Cognitive Function Orientation: Person, Place, Situation, Time Memory: Intact Attention: WNL Concentration: Poor Association: WNL Fund of Knowledge: Poor - Mood Mood: Neutral - Affect Affect: Flat - Speech Speech: Appropriate - Language Language: Word Retrieval - Formal Thought Process Formal Thought Process: No Impairment - Suicidal Ideation Suicidal Ideation: No - Homicidal Ideation Homicidal Ideation: No Goal/Treatment Plan - Goal/Treatment Plan Need for Continued Stay: Severe depression anxiety, Severe functional impairment Progress Toward Problem(s) and Goals/Treatment Plan: Continue Subutex taper Support and psychoeducation daily Attend groups and activities daily After care planning by SW After care discussed. Patient wants to attend inpatient program at [facility].
[2017-09-10 20:11] VITALS: RESP 18
--- NOTE | 2017-09-11 07:57 | PCM.FALL ---
Post Fall Progress Note - Post Fall Fall Date: 09/11/17 Fall Time: 07:49 Description of Fall: As per nursing, patient was sitting at the side of the chair and slipped his bottom to the ground without suffering any injuries. Upon arrival, patient was sitting in a chair in no acute distress. Patient's vitals was stable. Patient was oriented to place, location and time and responsive. Patient stated "I am okay" - Post Fall Exam Vital Sign: Temp Pulse Resp BP Pulse Ox 98.2 F 75 18 130/82 100 09/11/17 06:16 09/11/17 06:16 09/11/17 06:16 09/11/17 06:16 09/11/17 06:16 Eye Exam: Positive for: Pupils equal, Pupils reactive Ear Exam: Negative for: Discharge, Bleeding Nose Exam: Negative for: Discharge, Bleeding Skin Exam: Negative for: Colour, Lacerations, Grazes, Bruising Mouth Exam: Negative for: Tongue bitten, Teeth dislodge Neck Exam: Negative for: Tenderness, Tingling, Weakness Spinal Exam: Negative for: Tenderness, Tingling, Weakness Chest Exam: Negative for: Difficulty breathing, Tenderness in collar bones, Tenderness in ribs Abdomen Exam: Negative for: Tenderness Arm Exam: Negative for: Deformity, Alteration in range of movement Leg Exam: Negative for: Deformity, Alteration in range of movement Impression/Plan: Patient is stable and suffered no injury with stable vitals. Patient AAOX3
[2017-09-11 08:58] VITALS: BP 138/86; PULSE 64; TEMP 98.6; O2SAT 99
[2017-09-11] MEDS: Buprenorphine Hydrochloride 2 mg SL SCH (09:14)
--- NOTE | 2017-09-11 09:54 | PCM.PYCHDC ---
Mental Status Examination - Mental Status Examination Orientation: Person Memory: Intact Mood: Neutral Affect: Broad Speech: Appropriate Attention: WNL Concentration: WNL Language: Word Retrieval Association: WNL Fund of Knowledge: WNL Formal Thought Process: No Impairment Suicidal Ideation: No Current Homicidal Ideation?: No Discharge Summary - Discharge Note Reason for Hospitalization: Opioid use disorder detox Consultations:: List each consultation separately and include: 1. Reason for request. 2. Findings. 3. Follow-up Summary of Hospital Course include:: 1. Description of specific treatment plan utilized for patients during their course of treatmen. 2. Summarize the time- course for resolution of acute symptoms and/or regressed behaviors. 3. Describe issues identified and worked on during hospitalization. 4. Describe medication utilized. 5. Describe medical problems identified and treated. 6. Reassessment of suicide risk Summary of Hospital Course: Admission Summary: Pt is a 31 yr old male, who is currently unemployed was taken to the ED by his , to get help in opioid detox. As per the ED note, pt reported that he needs detox from Opioids, which he calls Eva. He said that he crushes up 5-10 pills and sniffs them. He also reports of abusing few bags of heroin. Pt said that he has detoxed twice before and was unsuccessful. Pt was spoke with about going to rehab once his detox is complete. Pts was supportive. 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 Pt has been for four years and has four children. Pt said that he needs to get off of drugs for the sake of his children and his health. Pt has Edema in both legs. Pt denied taking medication for anything at this time however did report a hx of mental illness. Pt said that he is not the type of person who would destroy any property or assault others. However he does have a hx of incarcerations for such. Patient reports of withdrawal symptoms including headache, anxiety, nausea and cramps. He reports depressed and anxious modo but denies any feelings of hopelessness and helplessness. He deneis any suicidal ideation or homicidal ideation. He denies any auditory or visual hallucinations or any psychotic symptoms. 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 CA and CBT used. The pt attended groups and activities, as well as milieu therapy. On day of discharge, patient slipped off a chair and landed on the floor; no injury was reported. Patient was examined by medical doctor and determine to be stable. All the risks and benefits of medications are discussed and the patient understood and agreed. The pt improved with the treatments provided. After care discussed with the patient. Patient is attending [facility] Waitlisted. - Diagnosis (1) Opioid use disorder, severe, dependence Status: Acute - Final Diagnosis (DSM 5) Condition upon Discharge: FAIR DSM 5: Opioid use disorder severe Opioid withdrawal Disposition: HOME/ ROUTINE Follow-up Treatment Plan: Continue below medications following discharge. Follow after care plan as discussed. Use relapse prevention skills. Return to ER or call 911 if suicidal, homicidal or symptoms relapse. Stay away from stress, alcohol, and drugs. See primary doctor regularly and get labs. Prescriptions/Medication Reconciliation: Gabapentin [Neurontin] 100 mg PO TID #90 cap traZODone [Desyrel] 50 mg PO HS #30 tab
== END 2017-09-11 10:15 | disposition home or self-care (01) | DRG 745 ==
LOC: C.ER 21:22 → C.7D 09-07 00:18
PROVIDERS: ADMIT Psychiatry & Neurology Psychiatry; ATTEND Psychiatry & Neurology Psychiatry
PROC: HZ52ZZZ Individual Psychotherapy for Substance Abuse Treatment, Cognitive-Behavioral (ICD-10-PCS; principal; 2017-09-07)
PROC: HZ2ZZZZ Detoxification Services for Substance Abuse Treatment (ICD-10-PCS; 2017-09-07)
PROC: HZ59ZZZ Individual Psychotherapy for Substance Abuse Treatment, Supportive (ICD-10-PCS; 2017-09-07)
PROC: HZ56ZZZ Individual Psychotherapy for Substance Abuse Treatment, Psychoeducation (ICD-10-PCS; 2017-09-07)
PROC: HZ42ZZZ Group Counseling for Substance Abuse Treatment, Cognitive-Behavioral (ICD-10-PCS; 2017-09-07)
PROC: HZ46ZZZ Group Counseling for Substance Abuse Treatment, Psychoeducation (ICD-10-PCS; 2017-09-07)
DX: F11.23 Opioid dependence with withdrawal (principal); F41.8 Other specified anxiety disorders

== ENCOUNTER 2018-04-25 21:22 | Inpatient (IN) | payer MEDICAID ==
[2018-04-25 21:22] VITALS: BMI 35.3
--- NOTE | 2018-04-25 21:43 | C.PDOC ---
History Of Present Illness 42 year old male presents to the ED requesting detox for heroin abuse. Patient reports he snorts 20-30 bags a day. Patient denies SI/HI, hallucinations, injury, fall, trauma, CP, SOB. Time Seen by Provider: 04/25/18 21:43 Chief Complaint (Nursing): Substance Abuse History Per: Patient History/Exam Limitations: no limitations Onset/Duration Of Symptoms: Hrs Current Symptoms Are (Timing): Still Present Suicide/Self Injury Attempted (Context): None Modifying Factor(s): Other (Heroin) Severity: None Associated Symptoms: denies: Depression, Suicidal Thoughts, Suicidal Plan Recent travel outside of the [place]: No Additional History Per: Patient Past Medical History Reviewed: Historical Data, Nursing Documentation, Vital Signs Vital Signs: Last Vital Signs Temp 98.3 F 04/25/18 21:23 Pulse 84 04/25/18 21:23 Resp 19 04/25/18 21:23 BP 145/75 04/25/18 21:23 Pulse Ox 96 04/25/18 21:23 - Medical History PMH: No Chronic Diseases Denies: Diabetes, Hepatitis, HIV, HTN, Seizures, Sexually Transmitted Disease Surgical History: No Surg Hx - [facility] Procedures DETOXIFICATION SERVICES FOR SUBSTANCE ABUSE TREATMENT (09/07/17) GROUP GROUP ACCOUNT DIRECTOR FOR SUBSTANCE ABUSE TREATMENT, PSYCHOEDUCATION (09/07/17) GROUP GROUP ACCOUNT DIRECTOR FOR SUBSTANCE ABUSE, COGNITIVE BEHAVIORAL (09/07/17) INDIV PSYCHOTHERAPY FOR SUBSTANCE ABUSE TREATMENT, SUPPORT (09/07/17) INDIV PSYCHOTHERAPY FOR SUBSTANCE ABUSE, COGNITIV BEHAVIORAL (09/07/17) INDIV PSYCHOTHERAPY FOR SUBSTANCE ABUSE, PSYCHOEDUCATION (09/07/17) Family History: States: Unknown Family Hx - Social History Hx Alcohol Use: No Hx Substance Use: Yes (Opiods) - Immunization History Hx Tetanus Toxoid Vaccination: No Hx Influenza Vaccination: No Hx Pneumococcal Vaccination: No Review Of Systems Constitutional: Negative for: Fever, Chills Cardiovascular: Negative for: Chest Pain Respiratory: Negative for: Cough, Shortness of Breath Gastrointestinal: Negative for: Nausea, Vomiting, Abdominal Pain Skin: Negative for: Rash Neurological: Negative for: Headache Psych: Negative for: Depression, Suicidal ideation Physical Exam - Physical Exam Appears: Non-toxic, No Acute Distress Skin: Warm, Dry Head: Normacephalic Eye(s): bilateral: Normal Inspection Oral Mucosa: Moist Neck: Supple Chest: Symmetrical Cardiovascular: Rhythm Regular Respiratory: No Rales, No Rhonchi, No Wheezing Gastrointestinal/Abdominal: Soft, No Tenderness, No Guarding, No Rebound Back: Normal Inspection Extremity: Normal ROM Extremity: Bilateral: Atraumatic, Normal Color And Temperature, Normal ROM Neurological/Psych: Oriented x3, Normal Speech, Normal Cognition Gait: Steady ED Course And Treatment - Laboratory Results Result Diagrams: 04/25/18 21:51 04/25/18 21:51 O2 Sat by Pulse Oximetry: 96 (ON RA) Pulse Ox Interpretation: Normal Progress Note: Plan: - Labs. - UA. - Crisis eval Disposition Discussed With Dr.: Manuel Payne Comment: accepted the pt on his service and took over the care at 1:50 AM Doctor Will See Patient In The: Hospital Counseled Patient/Family Regarding: Studies Performed, Diagnosis - Disposition Disposition: HOSPITALIZED Disposition Time: 21:43 Condition: FAIR Forms: [facility] (Qatari) - Clinical Impression Clinical Impression: Opioid use disorder, severe, dependence - Scribe Statement The provider has reviewed the documentation as recorded by the Scribe Elvis Delgado All medical record entries made by the Scribe were at my direction and personally dictated by me. I have reviewed the chart and agree that the record accurately reflects my personal performance of the history, physical exam, medical decision making, and the department course for this patient. I have also personally directed, reviewed, and agree with the discharge instructions and disposition. Decision To Admit - Pt Status Changed To: Hospital Disposition Of: Inpatient - Admit Certification Admit to Inpatient:: After my assessment, the patient will require hospitalization for at least two midnights. This is because of the severity of symptoms shown, intensity of services needed, and/or the medical risk in this patient being treated as an outpatient. - InPatient: Physician Admission Certification: I certify that this patient requires 2 or more midnights of care for the following reason:: After my assessment, the patient will require hospitalization for at least two midnights. This is because of the severity of symptoms shown, intensity of services needed, and/or the medical risk in this patient being treated as an outpatient. - . Bed Request Type: Detox Admitting Physician: Manuel Payne Patient Diagnosis: Opioid use disorder, severe, dependence
[2018-04-25 21:55] LABS: BASO % 0.6 % (0.0-2.0); EOS # 0.1 K/uL (0.0-0.7); HEMOGLOBIN 13.3 g/dL (12.0-18.0); LYMPH # 1.9 K/uL (1.0-4.3); LYMPH % 51.7 % (20.0-40.0); MEAN CELL VOLUME 94.3 fL (80.0-94.0); MEAN CORPUSCULAR HEMOGLOBIN 31.5 pg (27.0-31.0); MEAN CORPUSCULAR HGB CONC 33.4 g/dL (33.0-37.0); MEAN PLATELET VOLUME 9.2 fL (7.2-11.7); MONO # 0.5 K/uL (0.0-0.8); MONO % 14.3 % (0.0-10.0); NEUT # 1.2 K/uL (1.8-7.0); NEUT % 31.4 % (50.0-75.0); RBC 4.24 Mil/uL (4.40-5.90); RED CELL DISTRIBUTION WIDTH 15.3 % (11.5-14.5); WHITE BLOOD COUNT 3.7 K/uL (4.8-10.8)
[2018-04-25 21:59] LABS: URINE BILIRUBIN NEGATIVE (NEGATIVE); URINE BLOOD NEGATIVE (NEGATIVE); URINE CLARITY Clear (Clear); URINE COLOR Yellow (YELLOW); URINE GLUCOSE (UA) NORMAL (Normal); URINE HYALINE CAST 0-2 /lpf (0-2); URINE LEUKOCYTE ESTERASE NEG Leu/uL (Negative); URINE PROTEIN NEGATIVE (NEGATIVE)
[2018-04-25 22:14] LABS: BARBITURATES, UR NEGATIVE (NEGATIVE); BENZODIAZEPINES, UR NEGATIVE (NEGATIVE); PHENCYCLIDINE, UR NEGATIVE (NEGATIVE)
[2018-04-25 22:19] LABS: ALB/GLOB RATIO 1.4 (1.0-2.1); ALBUMIN 4.3 g/dL (3.5-5.0); ALT/SGPT 30 U/L (21-72); AST/SGOT 26 U/L (17-59); BLOOD UREA NITROGEN 14 mg/dL (9-20); CALCIUM 8.8 mg/dl (8.6-10.4); GFR NON-AFRICAN AMERICAN > 60
[2018-04-25 22:28] LABS: OPIATES, UR POSITIVE (NEGATIVE)
--- NOTE | 2018-04-26 04:42 | PCM.BM ---
Treatment Plan Problems - Problems identified on initial assessmt Opiate Dependence Date Initiated: 04/26/18 Time Initiated: 04:41 Assessment reference: NA Status: Active Treatment assets and liabiliti Patient Assests: ADL independent Patient Liabilities: substance abuse - Milieu Protocol Maintain good personal hygiene: daily Encourage regular showers, daily Remind patient to perform daily oral care, daily Assist patient to perform ADL's Maintain personal safety: every shift Educate patient to report safety concerns to staff, every shift Monitor environment for contraband/sharps Medication safety: Monitor for expected outcome, potential side effects: every shift, Assess barriers to learning: every shift, Assess readiness for medication education: every shift
[2018-04-26] MEDS ORDERED: Aluminum Hydroxide/Magnesium Hydroxide Susp (30 mL) PO PRN (12:17)
--- NOTE | 2018-04-26 18:51 | PCM.PSYCH ---
Initial Psychiatric Evaluation - Initial Psychiatric Evaluation Type of Admission: Voluntary Legal Status: Capacity Chief Complaint (in patient's own words): Any treatment for heroin withdrawal. History of Present Illness and Precipitating Events: Patient is a 42 years old, , unemployed, male with history of schizophrenia and opiate use disorder was admitted due to withdrawing from heroin. Patient reported he was diagnosed with schizophrenia 4 years ago but he is not taking any medications for last 3 years and doesn't think any medication. Opioid: Patient started using heroin 2 years ago. Before that patient was using Rolexes, Percocet and oxycodone for 3 years before start of heroin. Patient was using 30 bags of heroin daily, sniffing. Last used yesterday, 5 bags. Patient has history of 3 detox but no rehabs. Denied any other substance including cocaine, cannabis and alcohol. Cigarettes: He smokes 8 cigarettes daily, denied nicotine patch. Patient was born in [place], has 10th grade of education. Not working. Supported by mother. He is and has 4 children, 4, 5, 18 and 22 years of age.4 and 5 years old lives with their mother. Patient's height is 6 feet 1 inch and weight is 278 pounds. Current Medications: Active Medications Generic Name Dose Route Start Last Admin Trade Name Freq PRN Reason Stop Dose Admin Al Hydrox/Mg Hydrox/Simethicone 30 ml 04/26/18 12:17 Maalox 30 Ml PO TID PRN Indigestion / Heartburn Clonidine HCl 0.1 mg 04/26/18 04:34 Catapres PO Q6 PRN withdrawal symptoms Dicyclomine HCl 20 mg 04/26/18 12:21 Bentyl PO Q6 PRN Abdominal Cramps Gabapentin 400 mg 04/26/18 14:00 04/26/18 18:28 Neurontin PO 400 mg TID GRABIEL Administration Hydroxyzine HCl 50 mg 04/26/18 04:36 Atarax PO QID PRN Anxiety Ibuprofen 600 mg 04/26/18 12:22 Motrin Tab PO Q6 PRN Pain, moderate (4-7) Loperamide HCl 2 mg 04/26/18 12:17 Imodium PO Q8 PRN Diarrhea Methadone HCl 15 mg 04/27/18 10:00 Methadone PO 04/30/18 09:59 Q24H GRABIEL Taper Ondansetron HCl 4 mg 04/26/18 12:17 Zofran Tab PO Q8 PRN Nausea/Vomiting Past Psychiatric History - Past Psychiatric History Previous Treatment History: Inpatient History of Abuse: None reported History of ETOH/Drug Use: See HPI History of Family Illness: None reported Pertinent Medical Hx (Current Medical&Sleep Prob, Allergies): Allergies Allergy/AdvReac Type Severity Reaction Status Date / Time No Known Allergies Allergy Verified 04/25/18 21:31 RX: No Known Home Med 04/25/18 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 Review of Systems - Psychiatric Psychiatric: As Per HPI, Anxiety, Depression Mental Status Examination - Personal Presentation Personal Presentation: Looks stated age - Affect Affect: Other (Appropriate) - Motor Activity Motor Activity: Calm - Reliability in Providing Information Reliability in Providing Information: Fair - Speech Speech: Organized - Mood Mood: Anxious - Formal Thought Process Formal Thought Process: No Impairment - Hallucinations/Delusions Hallucinations: Other (None reported) Delusions: Other - Obsessions/Compulsions Obsessions: None Compulsions: None - Cognitive Functions Orientation: Person, Place, Situation, Time Sensorium: Alert Attention/Concentration: Attentive Abstract Thinking: [place] Estimate of Intelligence: Average Judgement: Intact, as evidence by: Insight regarding need for hospitalization Memory: Recent intact, as evidence by: Ability to recall events of the day, Remote intact, as evidenced by: Ability to recall historical events - Risk Risk: Withdrawal, Diminished functioning - Strength & Assets Inventory Strength & Assets Inventory: Family support, Cooperative - Limitations Limitations: Other (Lives with mother) DSM 5 DX - DSM 5 DSM 5 Diagnosis: Opioid withdrawal Opioid use disorder severe - Recommended/Plan of Treatment Treatment Recommendations and Plan of Treatment: Patient education. Supportive therapy. CBT for relapse prevention. NH for abstinence. We'll start methadone taper for opioid withdrawal symptoms. Other when necessary medication. Patient wants to go to [facility] for follow-up care after discharge from the hospital. Projected ELOS: 4-5 days - Smoking Cessation Smoking Cessation Initiated: No Reason for not providing: Patient refused
--- NOTE | 2018-04-27 14:52 | PCM.PYCHPN ---
Psychiatric Progress Note - Psychiatric Progress Note Patient seen today, length of contact: 15 minutes Patient Chief Complaint: I'm not feeling much better. Problems Identified/Issues Discussed: Patient seen, chart reviewed, case discussed with the staff. Issues related to illness and treatment were discussed with the patient and staff. Reported compliant with treatment with no adverse effects. Tolerating treatment very well. Reported feeling little better. Still feeling anxiety, body aches. Decreased sleep and abdominal cramps. Awake, alert and oriented 3. Calm and cooperative with good eye contact. Mood reported as anxious. Affect appropriate. Treatment discussed with the patient. Needs more time for stabilization. Aftercare discussed with the patient. Denied any delusions, auditory or visual hallucinations, suicidal ideations or homicidal ideations at the time of evaluation. Medical Problems: None reported Diagnostic Results: Reviewed Medication Change: No Medical Record Reviewed: Yes Mental Status Examination - Cognitive Function Orientation: Person, Place, Situation, Time Memory: Intact Attention: WNL Concentration: WNL Association: WNL Fund of Knowledge: WN Decription of patient's judgement and insights: Fair - Mood Mood: Anxious - Affect Affect: Other (Appropriate) - Speech Speech: Appropriate - Formal Thought Process Formal Thought Process: No Impairment Psychotic Thoughts and Behaviors: None - Suicidal Ideation Suicidal Ideation: No - Homicidal Ideation Homicidal Ideation: No Goal/Treatment Plan - Goal/Treatment Plan Need for Continued Stay: Remain at risks for inpatient hospitalization, Discharge may exacerbated symptoms, Severe functional impairment Progress Toward Problem(s) and Goals/Treatment Plan: Patient education. Supportive therapy. CBT for relapse prevention. DC for abstinence. Continue treatment as before. Patient wants to go to [facility] for follow-up care after discharge from the hospital. Estimated Date of D/C: 04/30/18 - Smoking Cessation Smoking Cessation Initiated: No
--- NOTE | 2018-04-28 15:18 | PCM.PYCHPN ---
Psychiatric Progress Note - Psychiatric Progress Note Patient seen today, length of contact: 15 minutes Medication Change: Yes Medical Record Reviewed: Yes Mental Status Examination - Cognitive Function Orientation: Person, Place, Situation, Time Memory: Intact Attention: WNL Concentration: WNL Association: WNL Fund of Knowledge: WNL - Mood Mood: Anxious - Affect Affect: Other (Appropriate) - Speech Speech: Appropriate - Formal Thought Process Formal Thought Process: No Impairment - Suicidal Ideation Suicidal Ideation: No - Homicidal Ideation Homicidal Ideation: No Goal/Treatment Plan - Goal/Treatment Plan Need for Continued Stay: Remain at risks for inpatient hospitalization, Discharge may exacerbated symptoms, Severe functional impairment Estimated Date of D/C: 04/30/18
[2018-04-29 08:48] VITALS: O2SAT 98
--- NOTE | 2018-04-29 10:21 | PCM.PYCHDC ---
Mental Status Examination - Mental Status Examination Orientation: Person Discharge Summary - Discharge Note Consultations:: List each consultation separately and include: 1. Reason for request. 2. Findings. 3. Follow-up Summary of Hospital Course include:: 1. Description of specific treatment plan utilized for patients during their course of treatmen. 2. Summarize the time- course for resolution of acute symptoms and/or regressed behaviors. 3. Describe issues identified and worked on during hospitalization. 4. Describe medication utilized. 5. Describe medical problems identified and treated. 6. Reassessment of suicide risk Summary of Hospital Course: Options IOP - Final Diagnosis (DSM 5) Condition upon Discharge: FAIR Disposition: HOME/ ROUTINE Prescriptions/Medication Reconciliation: Gabapentin [Neurontin] 400 mg PO TID #90 cap traZODone [Desyrel] 50 mg PO HS PRN #30 tab PRN Reason: Insomnia
[2018-04-29 12:35] VITALS: BP 133/86; PULSE 76; RESP 20; TEMP 99.4
== END 2018-04-29 13:21 | disposition home or self-care (01) | DRG 744 ==
LOC: C.ER 21:22 → C.7D 04-26 01:48
PROC: HZ52ZZZ Individual Psychotherapy for Substance Abuse Treatment, Cognitive-Behavioral (ICD-10-PCS; principal; 2018-04-26)
PROC: HZ2ZZZZ Detoxification Services for Substance Abuse Treatment (ICD-10-PCS; 2018-04-26)
PROC: HZ59ZZZ Individual Psychotherapy for Substance Abuse Treatment, Supportive (ICD-10-PCS; 2018-04-26)
PROC: HZ56ZZZ Individual Psychotherapy for Substance Abuse Treatment, Psychoeducation (ICD-10-PCS; 2018-04-26)
PROC: HZ42ZZZ Group Counseling for Substance Abuse Treatment, Cognitive-Behavioral (ICD-10-PCS; 2018-04-26)
PROC: HZ46ZZZ Group Counseling for Substance Abuse Treatment, Psychoeducation (ICD-10-PCS; 2018-04-26)
PROC: GZHZZZZ Group Psychotherapy (ICD-10-PCS; 2018-04-26)
PROC: GZ58ZZZ Individual Psychotherapy, Cognitive-Behavioral (ICD-10-PCS; 2018-04-26)
PROC: GZ56ZZZ Individual Psychotherapy, Supportive (ICD-10-PCS; 2018-04-26)
DX: F11.23 Opioid dependence with withdrawal (principal); F20.9 Schizophrenia, unspecified; F41.9 Anxiety disorder, unspecified; F17.210 Nicotine dependence, cigarettes, uncomplicated; G47.00 Insomnia, unspecified

== ENCOUNTER 2018-10-02 15:43 | Inpatient (IN) | payer MEDICAID ==
[2018-10-02 15:43] VITALS: BMI 35.3
--- NOTE | 2018-10-02 16:18 | C.PDOC ---
History Of Present Illness Patient is a 42 year old male who presents to the ED requesting detox from heroin. Patient reports that he last used yesterday. He denies any SI/HI, hallucinations, or other medical complaints. Time Seen by Provider: 10/02/18 16:02 Chief Complaint (Nursing): Substance Abuse History Per: Patient History/Exam Limitations: no limitations Suicide/Self Injury Attempted (Context): None Associated Symptoms: denies: Suicidal Thoughts, Suicidal Plan Recent travel outside of the [place]: No Additional History Per: Patient Past Medical History Reviewed: Historical Data, Nursing Documentation, Vital Signs Vital Signs: Last Vital Signs Temp 98.9 F 10/02/18 15:55 Pulse 82 10/02/18 15:55 Resp 18 10/02/18 15:55 BP 148/89 10/02/18 15:55 Pulse Ox 100 10/02/18 15:55 Primary Care Provider: FAMILY PROVIDER,NO - Medical History PMH: No Chronic Diseases Denies: Diabetes, Hepatitis, HIV, HTN, Seizures, Sexually Transmitted Disease Surgical History: No Surg Hx - [facility] Procedures DETOXIFICATION SERVICES FOR SUBSTANCE ABUSE TREATMENT (04/26/18) GROUP IRON CASTER FOR SUBSTANCE ABUSE TREATMENT, PSYCHOEDUCATION (04/26/18) GROUP IRON CASTER FOR SUBSTANCE ABUSE, COGNITIVE BEHAVIORAL (04/26/18) GROUP PSYCHOTHERAPY (04/26/18) INDIV PSYCHOTHERAPY FOR SUBSTANCE ABUSE TREATMENT, SUPPORT (04/26/18) INDIV PSYCHOTHERAPY FOR SUBSTANCE ABUSE, COGNITIV BEHAVIORAL (04/26/18) INDIV PSYCHOTHERAPY FOR SUBSTANCE ABUSE, PSYCHOEDUCATION (04/26/18) INDIVIDUAL PSYCHOTHERAPY, COGNITIVE-BEHAVIORAL (04/26/18) INDIVIDUAL PSYCHOTHERAPY, SUPPORTIVE (04/26/18) Family History: States: Unknown Family Hx - Social History Hx Alcohol Use: No Hx Substance Use: Yes - Immunization History Hx Tetanus Toxoid Vaccination: No Hx Influenza Vaccination: No Hx Pneumococcal Vaccination: No Review Of Systems Constitutional: Negative for: Fever Cardiovascular: Negative for: Chest Pain Respiratory: Negative for: Shortness of Breath Psych: Negative for: Suicidal ideation, Other (HI or hallucinations ) Physical Exam - Physical Exam Appears: Non-toxic, No Acute Distress Skin: Warm, Dry Head: Atraumatic, Normacephalic Oral Mucosa: Moist Neck: Normal ROM, Supple Chest: Symmetrical, No Deformity Cardiovascular: Rhythm Regular, No Murmur Respiratory: Normal Breath Sounds, No Rales, No Rhonchi, No Wheezing Extremity: Normal ROM Neurological/Psych: Oriented x3 ED Course And Treatment - Laboratory Results Result Diagrams: 10/02/18 16:53 10/02/18 16:53 O2 Sat by Pulse Oximetry: 100 (on RA) Pulse Ox Interpretation: Normal Medical Decision Making Medical Decision Making: Plan: Labs UA noted luekoctyosis. cxr read as patchy infiltreate. antibiotics given. will admit medically. pt accepted by dr mirlande kelly, pt does report "mild cough since yesterday" Disposition - Disposition Disposition: HOSPITALIZED Disposition Time: 18:00 Condition: STABLE Forms: [facility] (French) - Clinical Impression Clinical Impression: Opioid abuse, Opioid use disorder, severe, dependence, Pneumonia - Scribe Statement The provider has reviewed the documentation as recorded by the Scribisrael Maxwell All medical record entries made by the Scribe were at my direction and personally dictated by me. I have reviewed the chart and agree that the record accurately reflects my personal performance of the history, physical exam, medical decision making, and the department course for this patient. I have also personally directed, reviewed, and agree with the discharge instructions and disposition. Decision To Admit - Pt Status Changed To: Hospital Disposition Of: Inpatient - Admit Certification Admit to Inpatient:: After my assessment, the patient will require hospitalization for at least two midnights. This is because of the severity of symptoms shown, intensity of services needed, and/or the medical risk in this patient being treated as an outpatient. - InPatient: Physician Admission Certification: I certify that this patient requires 2 or more midnights of care for the following reason:: needs iv antibotics and pyshc eval for detox. - . Bed Request Type: Regular Admitting Physician: Kellee Kelly Patient Diagnosis: Opioid abuse, Opioid use disorder, severe, dependence, Pneumonia
[2018-10-02 16:56] LABS: HEMOGLOBIN 14.6 g/dL (12.0-18.0); MEAN CELL VOLUME 95.1 fL (80.0-94.0); MEAN CORPUSCULAR HEMOGLOBIN 31.9 pg (27.0-31.0); MEAN CORPUSCULAR HGB CONC 33.5 g/dL (33.0-37.0); MEAN PLATELET VOLUME 9.5 fL (7.2-11.7); NEUT % 80.1 % (50.0-75.0); RBC 4.58 Mil/uL (4.40-5.90); RED CELL DISTRIBUTION WIDTH 15.4 % (11.5-14.5)
[2018-10-02 16:57] LABS: BASO % 0.2 % (0.0-2.0); LYMPH # 1.8 K/uL (1.0-4.3); LYMPH % 13.5 % (20.0-40.0); MONO # 0.8 K/uL (0.0-0.8); MONO % 6.2 % (0.0-10.0); NEUT # 10.4 K/uL (1.8-7.0)
[2018-10-02 17:11] LABS: ALB/GLOB RATIO 1.4 (1.0-2.1); ALBUMIN 4.7 g/dL (3.5-5.0); ALT/SGPT 33 U/L (21-72); AST/SGOT 28 U/L (17-59); BLOOD UREA NITROGEN 16 mg/dL (9-20); CALCIUM 9.9 mg/dl (8.6-10.4); GFR NON-AFRICAN AMERICAN > 60
[2018-10-02 17:33] LABS: BARBITURATES, UR NEGATIVE (NEGATIVE); BENZODIAZEPINES, UR NEGATIVE (NEGATIVE); PHENCYCLIDINE, UR NEGATIVE (NEGATIVE)
[2018-10-02 17:38] LABS: OPIATES, UR POSITIVE (NEGATIVE)
--- NOTE | 2018-10-02 17:49 | RAD ---
HISTORY: pysch COMPARISON: Chest x-ray performed 09/09/17 TECHNIQUE: Chest PA and lateral, 2 views FINDINGS: Examination limited by habitus and hypoinflation. LUNGS: Right lower lobe hazy infiltrate. Please note that chest x-ray has limited sensitivity for the detection of pulmonary masses. PLEURA: No significant pleural effusion identified. No definite pneumothorax . CARDIOVASCULAR: Cardiomegaly. No atherosclerotic calcification present. OSSEOUS STRUCTURES: Degenerative changes. VISUALIZED UPPER ABDOMEN: Unremarkable. OTHER FINDINGS: None. IMPRESSION: Right lower lobe infiltrate may represent pneumonia. Correlate clinically.
[2018-10-02 17:50] LABS: SQUAMOUS EPITHIAL < 1 /hpf (0-5); URINE BACTERIA RARE (<OCC); URINE BILIRUBIN NEGATIVE (NEGATIVE); URINE BLOOD NEGATIVE (NEGATIVE); URINE CLARITY Clear (Clear); URINE COLOR Yellow (YELLOW); URINE GLUCOSE (UA) 1+ mg/dL (Normal); URINE LEUKOCYTE ESTERASE NEG Leu/uL (Negative); URINE PROTEIN NEGATIVE (NEGATIVE); URINE UROBILINOGEN NORMAL mg/dL (0.2-1.0)
[2018-10-02] MEDS ORDERED: cefTRIAXone IV 1 gm in Dextros 50 ML IVPB ONE (17:51)
[2018-10-02] MEDS ORDERED: Azithromycin 500 MG in Sodium Chloride 0.9% 250 ML IVPB STA (17:51)
[2018-10-02] MEDS ORDERED: Azithromycin 500mg/250ML NS 500 MG/250 ML BAG IVPB ONE (18:18)
--- NOTE | 2018-10-02 21:20 | CP.PCM.HP ---
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 Patient states he's tried to stop in the past, however has yet to be successful for a long period of time . Patient denies any chest pain, shortness of breath, fevers, chills, headaches, nausea, vomiting, syncopal episodes, or any other complaints. pt has infiltrate on chest x ray and has cough ad,mitted iwth pneumonia s/p iv antibiotic PMH:denies Surgical History: denies Medications: denies Allergies: Denies Present on Admission - Present on Admission Any Indicators Present on Admission: No Past Patient History - Past Medical History & Family History Past Medical History?: Yes - Past Social History Smoking Status: Light Smoker < 10 Cigarettes Daily - CARDIAC Hx Hypertension: No - PULMONARY Hx Tuberculosis: No - NEUROLOGICAL Hx Seizures: No - HEMATOLOGICAL/ONCOLOGICAL Hx Human Immunodeficiency Virus (HIV): No - INTEGUMENTARY Other/Comment: right leg cellulitis - MUSCULOSKELETAL/RHEUMATOLOGICAL Hx Falls: No - GENITOURINARY/GYNECOLOGICAL Hx Sexually Transmitted Disorders: No - PSYCHIATRIC Hx Substance Use: Yes - SURGICAL HISTORY Hx Surgeries: No - ANESTHESIA Hx Anesthesia: No Meds Home Medications: Home Medication List Medication Instructions Recorded Confirmed Type Amoxicillin/Clavulanate [Augmentin 1 tab PO Q12 #14 tab 10/06/18 Rx 875 MG-125 MG] Allergies/Adverse Reactions: Allergies Allergy/AdvReac Type Severity Reaction Status Date / Time No Known Allergies Allergy Verified 10/02/18 17:30 Results - Vital Signs Recent Vital Signs: Last Vital Signs Temp 99.6 F 10/02/18 18:26 Pulse 78 10/02/18 18:26 Resp 16 10/02/18 18:26 BP 157/84 H 10/02/18 18:26 Pulse Ox 95 10/02/18 18:26 - Labs Result Diagrams: 10/02/18 16:53 10/02/18 16:53 Labs: Laboratory Results - last 24 hr 10/02/18 10/02/18 10/02/18 16:53 16:53 17:01 WBC 13.0 H D RBC 4.58 Hgb 14.6 Hct 43.6 MCV 95.1 H MCH 31.9 H MCHC 33.5 RDW 15.4 H Plt Count 200 MPV 9.5 Neut % (Auto) 80.1 H Lymph % (Auto) 13.5 L [place] % (Auto) 6.2 Eos % (Auto) 0.0 Baso % (Auto) 0.2 Neut # (Auto) 10.4 H Lymph # (Auto) 1.8 [place] # (Auto) 0.8 Eos # (Auto) 0.0 Baso # (Auto) 0.0 Sodium 139 Potassium 3.8 Chloride 99 Carbon Dioxide 27 Anion Gap 17 BUN 16 Creatinine 0.6 L Est GFR ( Amer) > 60 Est GFR (Non-Af Amer) > 60 Random Glucose 133 H D Calcium 9.9 Phosphorus 3.2 Magnesium 1.8 Total Bilirubin 0.7 AST 28 ALT 33 Alkaline Phosphatase 73 Total Protein 8.0 Albumin 4.7 Globulin 3.3 Albumin/Globulin Ratio 1.4 Urine Color Yellow Urine Clarity Clear Urine pH 5.0 Ur Specific [place] 1.030 Urine Protein Negative Urine Glucose (UA) 1+ H Urine Ketones 1+ H Urine Blood Negative Urine Nitrate Negative Urine Bilirubin Negative Urine Urobilinogen Normal Ur Leukocyte Esterase Neg Urine WBC (Auto) 2 Urine RBC (Auto) 1 Ur Squamous Epith Cells < 1 Urine Bacteria Rare Urine Opiates Screen Urine Methadone Screen Ur Barbiturates Screen Ur Phencyclidine Scrn Ur Amphetamines Screen U Benzodiazepines Scrn U Oth Cocaine Metabols U Cannabinoids Screen Alcohol, Quantitative < 10 10/02/18 17:01 WBC RBC Hgb Hct MCV MCH MCHC RDW Plt Count MPV Neut % (Auto) Lymph % (Auto) [place] % (Auto) Eos % (Auto) Baso % (Auto) Neut # (Auto) Lymph # (Auto) [place] # (Auto) Eos # (Auto) Baso # (Auto) Sodium Potassium Chloride Carbon Dioxide Anion Gap BUN Creatinine Est GFR ( Amer) Est GFR (Non-Af Amer) Random Glucose Calcium Phosphorus Magnesium Total Bilirubin AST ALT Alkaline Phosphatase Total Protein Albumin Globulin Albumin/Globulin Ratio Urine Color Urine Clarity Urine pH Ur Specific [place] Urine Protein Urine Glucose (UA) Urine Ketones Urine Blood Urine Nitrate Urine Bilirubin Urine Urobilinogen Ur Leukocyte Esterase Urine WBC (Auto) Urine RBC (Auto) Ur Squamous Epith Cells Urine Bacteria Urine Opiates Screen Positive H Urine Methadone Screen Negative Ur Barbiturates Screen Negative Ur Phencyclidine Scrn Negative Ur Amphetamines Screen Negative U Benzodiazepines Scrn Negative U Oth Cocaine Metabols Negative U Cannabinoids Screen Negative Alcohol, Quantitative Assessment & Plan (1) Cardiac ischemia Status: Acute (2) Hallucinations Status: Acute (3) Heroin abuse Status: Acute (4) Opioid abuse Status: Acute (5) Opioid use disorder, severe, dependence Status: Acute (6) Peripheral edema Status: Acute (7) Pneumonia Status: Acute - Assessment and Plan (Free Text) Plan: CAP Chest xray:right lower lobe infiltrate may represent Pneumonia Leukocytosis on admission:13.4 Blood culture ordered. Will f/u with results Medications: Azithromycin 500mg IVPB DAILY Ceftriaxeone IVPB DAILY Duonebs 3ml INH RQ6 hx of Opiate abuse UDS: positive for opiate Psychiatry Dr. Segovia consulted--> Help appreicated Medications: Clonidine .1mg PO Q4 PRN Atarax 50mg PO Q6 PRN Methadone 25mg PO Q24 H Zofran 4mg PO Q8 prn Insomnia Medications: Trazodone 100mg PO HS Tobacco use Medications: Nicoderm patch 1 patch TD DAILY ppx -Lovenox -Protonix
[2018-10-03 00:28] VITALS: RESP 20
[2018-10-03] MEDS: Albuterol-Ipratrop 3 mg / 0.5 (3 ml) UD INH SCH ×4 (02:29→19:17)
--- NOTE | 2018-10-03 07:19 | CP.PCM.PN ---
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 Patient states he's tried to stop in the past, however has yet to be successful for a long period of time . Patient denies any chest pain, shortness of breath, fevers, chills, headaches, nausea, vomiting, syncopal episodes, or any other complaints. PMH:denies Surgical History: denies Medications: denies Allergies: Denies Objective - Vital Signs/Intake and Output Vital Signs (last 24 hours): Temp Pulse Resp BP Pulse Ox 99.3 F 83 20 155/81 H 96 10/03/18 00:00 10/03/18 00:00 10/03/18 00:00 10/03/18 00:00 10/03/18 00:00 Intake and Output: 10/03/18 10/03/18 06:59 18:59 Intake Total 0 Balance 0 - Medications Medications: Current Medications Albuterol/Ipratropium (Duoneb 3 Mg/0.5 Mg (3 Ml) Ud) 3 ml INH RQ6 [facility] Last Admin: 10/03/18 02:29 Dose: Not Given Enoxaparin Sodium (Lovenox) 40 mg SC DAILY [facility] Ceftriaxone Sodium (Rocephin Iv 1 Gm Duplex) 50 mls @ 100 mls/hr IVPB DAILY [facility]; Protocol Azithromycin 500 mg/ Sodium (Chloride) 250 mls @ 250 mls/hr IVPB DAILY [facility]; Protocol Pantoprazole Sodium (Protonix Ec Tab) 40 mg PO DAILY [facility] - Labs Labs: 10/02/18 16:53 10/02/18 16:53 - Head Exam Head Exam: ATRAUMATIC, NORMAL INSPECTION - Eye Exam Eye Exam: EOMI, Normal appearance, PERRL Pupil Exam: NORMAL ACCOMODATION, PERRL. absent: Irregular, Unequal - ENT Exam ENT Exam: Mucous Membranes Moist, Normal Oropharynx - Respiratory Exam Respiratory Exam: Clear to Ausculation Bilateral, NORMAL BREATHING PATTERN. absent: Prolonged Expiratory Phase, Respiratory Distress - Cardiovascular Exam Cardiovascular Exam: REGULAR RHYTHM, +S1, +S2. absent: Rubs - GI/Abdominal Exam GI & Abdominal Exam: Soft, Normal Bowel Sounds. absent: Rigid - Extremities Exam Extremities Exam: Normal Inspection. absent: Joint Swelling, Pedal Edema, Tenderness - Neurological Exam Neurological Exam: Alert, Awake, CN II-XII Intact, Oriented x3 - Psychiatric Exam Psychiatric exam: Normal Affect, Normal Mood. absent: Anxious, Depressed - Skin Skin Exam: Dry, Intact. absent: Erythema, Rash Assessment and Plan - Assessment and Plan (Free Text) Plan: CAP Chest xray:right lower lobe infiltrate may represent Pneumonia Leukocytosis on admission:13.4 Blood culture ordered. Will f/u with results Medications: Azithromycin 500mg IVPB DAILY Ceftriaxeone IVPB DAILY Duonebs 3ml INH RQ6 hx of Opiate abuse UDS: positive for opiate Psychiatry Dr. Segovia consulted--> Help appreicated Medications: Clonidine .1mg PO Q4 PRN Atarax 50mg PO Q6 PRN Methadone 25mg PO Q24 H Zofran 4mg PO Q8 prn Insomnia Medications: Trazodone 100mg PO HS Tobacco use Medications: Nicoderm patch 1 patch TD DAILY ppx -Lovenox -Protonix Plan discussed with Attending Dr. Santy Marcelo. Trent Roberts, PGY-2
[2018-10-03] MEDS ORDERED: Aluminum Hydroxide/Magnesium Hydroxide Susp (30 mL) PO PRN (08:43)
--- NOTE | 2018-10-03 08:44 | PCM.PSYCH ---
Initial Psychiatric Evaluation - Initial Psychiatric Evaluation Type of Admission: Voluntary Legal Status: Capacity Chief Complaint (in patient's own words): "I am very sick" History of Present Illness and Precipitating Events: The pt was seen, chart reviewed, and case discussed. The consult was requested for pts detox from heroin. The pt came in for heroin detox, but he was found to have pneumonia and he is being managed on the medicine floor. Pt is a 42 year old male , with 4 children, unemployed, and homeless with psych hx of bipolar disorder and depression. Pt sniffs 35 bags/day of heroin for the past 3 years. His last use was yesterday. He has history of ODs. Pt was admitted to detox on 04/26/18 for heroin detox. He was discharged on 04/29/19 with plans to attend [facility]. He smokes 6 cigarettes/day for the past 10 years. He denies other drug or alcohol use. He complains of F/C, N/V, and body aches. He has decreased sleep, energy, and appetite. Feels down. He denies suicidal/homicidal ideation. No psychosis or shannon COWS scale is 12 and increasing - treatment with methadone is to start Past psych hx: bipolar disorder, depression, no admission Fam psych hx: denies PMHx: Pneumonia Current Medications: Active Medications Generic Name Dose Route Start Last Admin Trade Name Freq PRN Reason Stop Dose Admin Al Hydrox/Mg Hydrox/Simethicone 30 ml 10/03/18 08:43 Maalox 30 Ml PO TID PRN Indigestion / Heartburn Albuterol/Ipratropium 3 ml 10/03/18 02:00 10/03/18 02:29 Duoneb 3 Mg/0.5 Mg (3 Ml) Ud INH Not Given RQ6 [facility] Clonidine HCl 0.1 mg 10/03/18 08:43 Catapres PO Q4 PRN COWS Score More or Equal to 5 Dicyclomine HCl 10 mg 10/03/18 08:43 Bentyl PO Q6 PRN Muscle spasm Enoxaparin Sodium 40 mg 10/03/18 10:00 Lovenox SC DAILY [facility] Ceftriaxone Sodium 50 mls @ 100 mls/hr 10/03/18 10:00 Rocephin Iv 1 Gm Duplex IVPB DAILY [facility] Protocol Azithromycin 500 mg/ Sodium 250 mls @ 250 mls/hr 10/03/18 10:00 Chloride IVPB DAILY [facility] Protocol Loperamide HCl 2 mg 10/03/18 08:43 Imodium PO Q8 PRN Diarrhea Methadone HCl 0 mg 10/03/18 09:00 Methadone PO 10/08/18 08:59 Q24H [facility] Taper Nicotine 1 patch 10/03/18 10:00 Nicoderm Cq TD DAILY [facility] Ondansetron HCl 4 mg 10/03/18 08:43 Zofran Tab PO Q8 PRN Nausea/Vomiting Pantoprazole Sodium 40 mg 10/03/18 10:00 Protonix Ec Tab PO DAILY [facility] Past Psychiatric History - Past Psychiatric History Previous Treatment History: None Pertinent Medical Hx (Current Medical&Sleep Prob, Allergies): Allergies Allergy/AdvReac Type Severity Reaction Status Date / Time No Known Allergies Allergy Verified 10/02/18 17:30 No Known Home Med 10/02/18 Review of Systems - Psychiatric Psychiatric: Abnormal Sleep Pattern, Anhedonia, Anxiety, Auditory Hallucinations, Depression, Difficulty Concentrating, Irritability, Mood Swings. absent: Hallucinations, Homicidal Ideation, Hopelessness, Paranoia, Suicidal Ideation Mental Status Examination - Personal Presentation Personal Presentation: Looks older than stated age - Affect Affect: Constricted - Motor Activity Motor Activity: Calm - Reliability in Providing Information Reliability in Providing Information: Fair - Speech Speech: Organized - Mood Mood: Depressed, Anxious - Formal Thought Process Formal Thought Process: No Impairment - Cognitive Functions Orientation: Person, Place, Situation, Time Sensorium: Alert Attention/Concentration: Easily distracted Estimate of Intelligence: Average Judgement: Intact, as evidence by: Insight regarding need for hospitalization Memory: Recent intact, as evidence by: Ability to recall events of the day, Remote intact, as evidenced by: Abilit to recall sig. life events - Risk Risk: Withdrawal, Diminished functioning - Strength & Assets Inventory Strength & Assets Inventory: Cooperative - Limitations Limitations: Other DSM 5 DX - DSM 5 DSM 5 Diagnosis: Opioid withdrawal Opioid use d/o - severe Depressive d/o - unspecified - Recommended/Plan of Treatment Treatment Recommendations and Plan of Treatment: Taper with methadone Remeron for sleep and depressed mood Gabapentin for augmentation if needed As needed medications All risks, benefits and alternatives of the meds discussed, and the pt agreed and understood. Supportive therapy and psychoeducation [place] for abstinence CBT for relapse prevention Encourage MAT after dc Refer to rehab or IOP, and self-help groups Teach healthy lifestyle methods, i.e. diet, exercise, meditation Smoking cessation with [place] Nicotine patch if needed 34 min
[2018-10-03] MEDS: Pantoprazole 40 mg EC Tab PO SCH (10:05)
[2018-10-03] MEDS: cefTRIAXone IV 1 gm in Dextros 50 ML IVPB SCH (10:05)
[2018-10-03] MEDS: Enoxaparin 40 mg Syringe SC SCH (10:18)
[2018-10-03] MEDS: Azithromycin 500 MG in Sodium Chloride 0.9% 250 ML IVPB SCH (11:59)
--- NOTE | 2018-10-03 19:48 | CP.PCM.PN ---
Subjective - Date & Time of Evaluation Date of Evaluation: 10/03/18 Time of Evaluation: 08:02 - Subjective Subjective: patient seen today cough still present no nausea no vomiting no diarrhea no dizziness no fever no shortness of breath Objective - Vital Signs/Intake and Output Vital Signs (last 24 hours): Temp Pulse Resp BP Pulse Ox 97.9 F 75 20 156/85 H 98 10/03/18 15:00 10/03/18 15:00 10/03/18 15:00 10/03/18 15:00 10/03/18 15:00 Intake and Output: 10/03/18 10/04/18 18:59 06:59 Intake Total 200 Balance 200 - Medications Medications: Current Medications Al Hydrox/Mg Hydrox/Simethicone (Maalox 30 Ml) 30 ml PO TID PRN PRN Reason: Indigestion / Heartburn Albuterol/Ipratropium (Duoneb 3 Mg/0.5 Mg (3 Ml) Ud) 3 ml INH RQ6 [facility] Last Admin: 10/03/18 19:17 Dose: 3 ml Clonidine HCl (Catapres) 0.1 mg PO Q4 PRN PRN Reason: COWS Score More or Equal to 5 Dicyclomine HCl (Bentyl) 10 mg PO Q6 PRN PRN Reason: Muscle spasm Enoxaparin Sodium (Lovenox) 40 mg SC DAILY [facility] Last Admin: 10/03/18 10:18 Dose: Not Given Hydroxyzine HCl (Atarax) 50 mg PO Q6H PRN PRN Reason: Anxiety Ceftriaxone Sodium (Rocephin Iv 1 Gm Duplex) 50 mls @ 100 mls/hr IVPB DAILY [facility]; Protocol Last Admin: 10/03/18 10:05 Dose: 100 mls/hr Azithromycin 500 mg/ Sodium (Chloride) 250 mls @ 250 mls/hr IVPB DAILY [facility]; Protocol Last Admin: 10/03/18 11:59 Dose: 250 mls/hr Loperamide HCl (Imodium) 2 mg PO Q8 PRN PRN Reason: Diarrhea Methadone HCl (Methadone) 25 mg PO Q24H [facility]; Taper Stop: 10/08/18 08:59 Last Admin: 10/03/18 10:05 Dose: 25 mg Nicotine (Nicoderm Cq) 1 patch TD DAILY [facility] Last Admin: 10/03/18 11:28 Dose: Not Given Ondansetron HCl (Zofran Tab) 4 mg PO Q8 PRN PRN Reason: Nausea/Vomiting Pantoprazole Sodium (Protonix Ec Tab) 40 mg PO DAILY [facility] Last Admin: 10/03/18 10:05 Dose: 40 mg Pneumococcal Polyvalent Vaccine (Pneumovax 23 Vaccine) 0.5 ml IM .ONCE ONE Stop: 10/05/18 10:01 Trazodone HCl (Desyrel) 100 mg PO HS [facility] - Labs Labs: 10/02/18 16:53 10/02/18 16:53 - Constitutional Appears: Well - Head Exam Head Exam: ATRAUMATIC, NORMAL INSPECTION, NORMOCEPHALIC - Eye Exam Eye Exam: EOMI, Normal appearance, PERRL Pupil Exam: NORMAL ACCOMODATION, PERRL - ENT Exam ENT Exam: Mucous Membranes Moist, Normal Exam - Neck Exam Neck Exam: Full ROM, Normal Inspection. absent: Lymphadenopathy - Respiratory Exam Respiratory Exam: Decreased Breath Sounds - Cardiovascular Exam Cardiovascular Exam: REGULAR RHYTHM, +S1, +S2 - GI/Abdominal Exam GI & Abdominal Exam: Soft, Diminished Bowel Sounds - Rectal Exam Rectal Exam: Deferred - Neurological Exam Neurological Exam: Oriented x3 Assessment and Plan - Assessment and Plan (Free Text) Plan: atarax azithromycin bentyl catapress desyrel duoneb imodium lovenox maalox methadone nicoderm cq protonix ec tab rocephin iv zofran tab plan discussed with patient and family moderate complexity of care medications reviewed labs and vitals reviewed
[2018-10-04] MEDS: Albuterol-Ipratrop 3 mg / 0.5 (3 ml) UD INH SCH ×4 (01:17→19:00)
[2018-10-04] MEDS: Enoxaparin 40 mg Syringe SC SCH (09:36)
[2018-10-04] MEDS: Pantoprazole 40 mg EC Tab PO SCH (09:36)
[2018-10-04] MEDS: Azithromycin 500 MG in Sodium Chloride 0.9% 250 ML IVPB SCH (09:40)
[2018-10-04] MEDS: cefTRIAXone IV 1 gm in Dextros 50 ML IVPB SCH (11:41)
--- NOTE | 2018-10-04 15:40 | CP.PCM.PN ---
Subjective - Date & Time of Evaluation Date of Evaluation: 10/04/18 - Subjective Subjective: patient examined today no nausea no vomiting no dizziness no diarrhea no fever no shortness of breath Objective - Vital Signs/Intake and Output Vital Signs (last 24 hours): Temp Pulse Resp BP Pulse Ox 98.2 F 66 20 141/81 98 10/04/18 08:13 10/04/18 08:13 10/04/18 08:13 10/04/18 08:13 10/04/18 08:13 Intake and Output: 10/04/18 10/04/18 06:59 18:59 Intake Total 500 450 Balance 500 450 - Medications Medications: Current Medications Al Hydrox/Mg Hydrox/Simethicone (Maalox 30 Ml) 30 ml PO TID PRN PRN Reason: Indigestion / Heartburn Albuterol/Ipratropium (Duoneb 3 Mg/0.5 Mg (3 Ml) Ud) 3 ml INH RQ6 [facility] Last Admin: 10/04/18 14:14 Dose: 3 ml Clonidine HCl (Catapres) 0.1 mg PO Q4 PRN PRN Reason: COWS Score More or Equal to 5 Dicyclomine HCl (Bentyl) 10 mg PO Q6 PRN PRN Reason: Muscle spasm Enoxaparin Sodium (Lovenox) 40 mg SC DAILY [facility] Last Admin: 10/04/18 09:36 Dose: Not Given Hydroxyzine HCl (Atarax) 50 mg PO Q6H PRN PRN Reason: Anxiety Ceftriaxone Sodium (Rocephin Iv 1 Gm Duplex) 50 mls @ 100 mls/hr IVPB DAILY [facility]; Protocol Last Admin: 10/04/18 11:41 Dose: 100 mls/hr Azithromycin 500 mg/ Sodium (Chloride) 250 mls @ 250 mls/hr IVPB DAILY [facility]; Protocol Last Admin: 10/04/18 09:40 Dose: 250 mls/hr Loperamide HCl (Imodium) 2 mg PO Q8 PRN PRN Reason: Diarrhea Methadone HCl (Methadone) 20 mg PO Q24H [facility]; Taper Stop: 10/08/18 08:59 Last Admin: 10/04/18 09:36 Dose: 20 mg Nicotine (Nicoderm Cq) 1 patch TD DAILY [facility] Last Admin: 10/04/18 09:36 Dose: Not Given Ondansetron HCl (Zofran Tab) 4 mg PO Q8 PRN PRN Reason: Nausea/Vomiting Pantoprazole Sodium (Protonix Ec Tab) 40 mg PO DAILY [facility] Last Admin: 10/04/18 09:36 Dose: 40 mg Pneumococcal Polyvalent Vaccine (Pneumovax 23 Vaccine) 0.5 ml IM .ONCE ONE Stop: 10/05/18 10:01 Trazodone HCl (Desyrel) 100 mg PO HS [facility] Last Admin: 10/03/18 21:27 Dose: 100 mg - Labs Labs: 10/02/18 16:53 10/02/18 16:53 - Constitutional Appears: Well - Head Exam Head Exam: ATRAUMATIC, NORMAL INSPECTION, NORMOCEPHALIC - Eye Exam Eye Exam: EOMI, Normal appearance, PERRL Pupil Exam: NORMAL ACCOMODATION, PERRL - ENT Exam ENT Exam: Mucous Membranes Moist, Normal Exam - Neck Exam Neck Exam: Full ROM, Normal Inspection. absent: Lymphadenopathy - Respiratory Exam Respiratory Exam: Decreased Breath Sounds - Cardiovascular Exam Cardiovascular Exam: REGULAR RHYTHM, +S1, +S2 - GI/Abdominal Exam GI & Abdominal Exam: Soft, Diminished Bowel Sounds - Rectal Exam Rectal Exam: Deferred - Neurological Exam Neurological Exam: Oriented x3 Assessment and Plan - Assessment and Plan (Free Text) Plan: atarax azithromycin bentyl catapress desyrel duoneb imodium lovenox maalox methadone nicoderm cq protonix ec tab rocephin iv zofran tab plan discussed with patient moderate complexity of care medications reviewed labs and vitals reviewe
[2018-10-05] MEDS: Albuterol-Ipratrop 3 mg / 0.5 (3 ml) UD INH SCH ×4 (02:11→20:06)
[2018-10-05] MEDS: Enoxaparin 40 mg Syringe SC SCH ×2 (09:25→13:28)
[2018-10-05] MEDS: Pantoprazole 40 mg EC Tab PO SCH (09:26)
[2018-10-05] MEDS: cefTRIAXone IV 1 gm in Dextros 50 ML IVPB SCH (09:27)
[2018-10-05] MEDS: Azithromycin 500 MG in Sodium Chloride 0.9% 250 ML IVPB SCH (09:29)
[2018-10-05] MEDS ORDERED: Pneumococcal 23-Valent Vaccine IM ONE (10:00)
--- NOTE | 2018-10-05 11:43 | PCM.PYCHPN ---
Psychiatric Progress Note - Psychiatric Progress Note Patient seen today, length of contact: 15 min Patient Chief Complaint: "I am better" Problems Identified/Issues Discussed: The pt is seen again, chart reviewed, and case is discussed with the team. The pt denies any side-effects from meds. Detox ending soon Not ready for discharge due to ongoing symptoms and high relapse risk. After care discussed again. He will talk with the SW too Psych will sign off now Medication Change: Yes (detox changes daily) Medical Record Reviewed: Yes Mental Status Examination - Cognitive Function Orientation: Person, Place, Situation, Time Memory: Intact Attention: Poor Concentration: Poor Association: WNL Fund of Knowledge: Poor - Mood Mood: Depressed (less), Anxious - Affect Affect: Constricted - Speech Speech: Appropriate - Formal Thought Process Formal Thought Process: No Impairment - Suicidal Ideation Suicidal Ideation: No - Homicidal Ideation Homicidal Ideation: No Goal/Treatment Plan - Goal/Treatment Plan Need for Continued Stay: Other (medical) Progress Toward Problem(s) and Goals/Treatment Plan: Taper with methadone Remeron for sleep and depressed mood Gabapentin for augmentation if needed As needed medications All risks, benefits and alternatives of the meds discussed, and the pt agreed and understood. Supportive therapy and psychoeducation [place] for abstinence CBT for relapse prevention Encourage MAT after dc Refer to rehab or IOP, and self-help groups Teach healthy lifestyle methods, i.e. diet, exercise, meditation Smoking cessation with [place] Nicotine patch if needed
--- NOTE | 2018-10-05 14:38 | CP.PCM.PN ---
Subjective - Date & Time of Evaluation Date of Evaluation: 10/05/18 - Subjective Subjective: patient examined today no nausea no vomitng no dizziness no diarrhea no fever no shortness of breath Objective - Vital Signs/Intake and Output Vital Signs (last 24 hours): Temp Pulse Resp BP Pulse Ox 98.2 F 69 20 130/77 97 10/05/18 07:30 10/05/18 07:30 10/05/18 07:30 10/05/18 07:30 10/05/18 07:30 Intake and Output: 10/05/18 10/05/18 06:59 18:59 Intake Total 500 Balance 500 - Medications Medications: Current Medications Al Hydrox/Mg Hydrox/Simethicone (Maalox 30 Ml) 30 ml PO TID PRN PRN Reason: Indigestion / Heartburn Albuterol/Ipratropium (Duoneb 3 Mg/0.5 Mg (3 Ml) Ud) 3 ml INH RQ6 [facility] Last Admin: 10/05/18 13:46 Dose: Not Given Clonidine HCl (Catapres) 0.1 mg PO Q4 PRN PRN Reason: COWS Score More or Equal to 5 Dicyclomine HCl (Bentyl) 10 mg PO Q6 PRN PRN Reason: Muscle spasm Enoxaparin Sodium (Lovenox) 40 mg SC DAILY [facility] Last Admin: 10/05/18 13:28 Dose: Not Given Hydroxyzine HCl (Atarax) 50 mg PO Q6H PRN PRN Reason: Anxiety Ceftriaxone Sodium (Rocephin Iv 1 Gm Duplex) 50 mls @ 100 mls/hr IVPB DAILY [facility]; Protocol Last Admin: 10/05/18 09:27 Dose: 100 mls/hr Azithromycin 500 mg/ Sodium (Chloride) 250 mls @ 250 mls/hr IVPB DAILY [facility]; Protocol Last Admin: 10/05/18 09:29 Dose: 250 mls/hr Loperamide HCl (Imodium) 2 mg PO Q8 PRN PRN Reason: Diarrhea Methadone HCl (Methadone) 15 mg PO Q24H [facility]; Taper Stop: 10/08/18 08:59 Last Admin: 10/05/18 09:26 Dose: 15 mg Nicotine (Nicoderm Cq) 1 patch TD DAILY [facility] Last Admin: 10/05/18 09:32 Dose: Not Given Ondansetron HCl (Zofran Tab) 4 mg PO Q8 PRN PRN Reason: Nausea/Vomiting Pantoprazole Sodium (Protonix Ec Tab) 40 mg PO DAILY [facility] Last Admin: 10/05/18 09:26 Dose: 40 mg Trazodone HCl (Desyrel) 100 mg PO HS [facility] Last Admin: 10/04/18 21:11 Dose: 100 mg - Labs Labs: 10/02/18 16:53 10/02/18 16:53 - Constitutional Appears: Well - Head Exam Head Exam: ATRAUMATIC, NORMAL INSPECTION, NORMOCEPHALIC - Eye Exam Eye Exam: EOMI, Normal appearance, PERRL Pupil Exam: NORMAL ACCOMODATION, PERRL - ENT Exam ENT Exam: Mucous Membranes Moist, Normal Exam - Neck Exam Neck Exam: Full ROM, Normal Inspection. absent: Lymphadenopathy - Respiratory Exam Respiratory Exam: Decreased Breath Sounds - Cardiovascular Exam Cardiovascular Exam: REGULAR RHYTHM, +S1, +S2 - GI/Abdominal Exam GI & Abdominal Exam: Soft, Diminished Bowel Sounds - Rectal Exam Rectal Exam: Deferred - Neurological Exam Neurological Exam: Oriented x3 Assessment and Plan - Assessment and Plan (Free Text) Plan: medications reviewed atarax azithromycin bentyl catapress desyrel duoneb imodium lovenox maalox methadone nicoderm cq protonix ec tab rocephin iv zofran tab plan discussed with patient moderate complexity of care labs and vitals reviewe
[2018-10-06] MEDS: Albuterol-Ipratrop 3 mg / 0.5 (3 ml) UD INH SCH ×3 (02:53→13:13)
[2018-10-06 06:30] VITALS: TEMP 98.4
--- NOTE | 2018-10-06 07:46 | CP.PCM.PN ---
<Trent Roberts - Last Filed: 10/06/18 17:05> Subjective - Date & Time of Evaluation Date of Evaluation: 10/06/18 Time of Evaluation: 07:45 - Subjective Subjective: PGY-2 Progress Note Patient seen and examined at bedside. Per nursing no acute events occurred overnight. Patient denies any fevers, chills, headaches, nausea, abdominal pain, changes in vision, or any other complaints. Objective - Vital Signs/Intake and Output Vital Signs (last 24 hours): Temp Pulse Resp BP Pulse Ox 98.4 F 72 20 133/82 97 10/06/18 06:00 10/06/18 00:00 10/06/18 00:00 10/06/18 00:00 10/06/18 00:00 Intake and Output: 10/06/18 10/06/18 06:59 18:59 Intake Total 650 Balance 650 - Medications Medications: Current Medications Al Hydrox/Mg Hydrox/Simethicone (Maalox 30 Ml) 30 ml PO TID PRN PRN Reason: Indigestion / Heartburn Albuterol/Ipratropium (Duoneb 3 Mg/0.5 Mg (3 Ml) Ud) 3 ml INH RQ6 [facility] Last Admin: 10/06/18 02:53 Dose: Not Given Clonidine HCl (Catapres) 0.1 mg PO Q4 PRN PRN Reason: COWS Score More or Equal to 5 Dicyclomine HCl (Bentyl) 10 mg PO Q6 PRN PRN Reason: Muscle spasm Enoxaparin Sodium (Lovenox) 40 mg SC DAILY [facility] Last Admin: 10/05/18 13:28 Dose: Not Given Hydroxyzine HCl (Atarax) 50 mg PO Q6H PRN PRN Reason: Anxiety Ceftriaxone Sodium (Rocephin Iv 1 Gm Duplex) 50 mls @ 100 mls/hr IVPB DAILY [facility]; Protocol Last Admin: 10/05/18 09:27 Dose: 100 mls/hr Azithromycin 500 mg/ Sodium (Chloride) 250 mls @ 250 mls/hr IVPB DAILY [facility]; Protocol Last Admin: 10/05/18 09:29 Dose: 250 mls/hr Loperamide HCl (Imodium) 2 mg PO Q8 PRN PRN Reason: Diarrhea Methadone HCl (Methadone) 15 mg PO Q24H [facility]; Taper Stop: 10/08/18 08:59 Last Admin: 10/05/18 09:26 Dose: 15 mg Nicotine (Nicoderm Cq) 1 patch TD DAILY [facility] Last Admin: 10/05/18 09:32 Dose: Not Given Ondansetron HCl (Zofran Tab) 4 mg PO Q8 PRN PRN Reason: Nausea/Vomiting Pantoprazole Sodium (Protonix Ec Tab) 40 mg PO DAILY [facility] Last Admin: 10/05/18 09:26 Dose: 40 mg Trazodone HCl (Desyrel) 100 mg PO HS [facility] Last Admin: 10/05/18 21:26 Dose: Not Given - Labs Labs: 10/02/18 16:53 10/02/18 16:53 - Head Exam Head Exam: ATRAUMATIC, NORMAL INSPECTION - Eye Exam Eye Exam: EOMI, Normal appearance, PERRL Pupil Exam: NORMAL ACCOMODATION. absent: Mydriatic - ENT Exam ENT Exam: Mucous Membranes Moist, Normal Exam - Neck Exam Neck Exam: Normal Inspection - Cardiovascular Exam Cardiovascular Exam: REGULAR RHYTHM, +S1, +S2. absent: Gallop, Irregular Rhythm - GI/Abdominal Exam GI & Abdominal Exam: Soft, Normal Bowel Sounds. absent: Mass - Extremities Exam Extremities Exam: Normal Capillary Refill, Normal Inspection - Neurological Exam Neurological Exam: Alert, Awake, CN II-XII Intact, Oriented x3 - Psychiatric Exam Psychiatric exam: Normal Affect, Normal Mood - Skin Skin Exam: Intact, Normal Color, Warm Assessment and Plan - Assessment and Plan (Free Text) Plan: CAP Chest xray:right lower lobe infiltrate may represent Pneumonia Leukocytosis on admission:13.4 Blood culture ordered. Will f/u with results Medications: Azithromycin 500mg IVPB DAILY Ceftriaxeone IVPB DAILY Duonebs 3ml INH RQ6 hx of Opiate abuse UDS: positive for opiate Psychiatry Dr. Segovia consulted--> Help appreicated Medications: Clonidine .1mg PO Q4 PRN Atarax 50mg PO Q6 PRN Methadone 25mg PO Q24 H Zofran 4mg PO Q8 prn Insomnia Medications: Trazodone 100mg PO HS Tobacco use Medications: Nicoderm patch 1 patch TD DAILY ppx -Lovenox -Protonix Discharge Instructions: 1.F/u with Dr. Santy Marcelo within 5 days of discharge. 2.Return to hospital for any new or worsening symptoms. Medications: 1.Augmentin 875mg PO Q12, #14, No refills. Plan discussed with Attending Dr. Santy Marcelo. Trent Roberts, PGY-2 <Kellee Marcelo - Last Filed: 10/06/18 22:31> Objective - Vital Signs/Intake and Output Vital Signs (last 24 hours): Temp Pulse Resp BP Pulse Ox 98.4 F 60 20 133/83 96 10/06/18 07:00 10/06/18 07:00 10/06/18 07:00 10/06/18 07:00 10/06/18 07:00 Intake and Output: 10/06/18 10/07/18 18:59 06:59 Intake Total 850 Balance 850 - Labs Labs: 10/02/18 16:53 10/02/18 16:53 Assessment and Plan (1) Cardiac ischemia Status: Acute (2) Hallucinations Status: Acute (3) Heroin abuse Status: Acute (4) Opioid abuse Status: Acute (5) Opioid use disorder, severe, dependence Status: Acute (6) Peripheral edema Status: Acute (7) Pneumonia Status: Acute Attending/Attestation - Attestation I have personally seen and examined this patient.: Yes I have fully participated in the care of the patient.: Yes I have reviewed all pertinent clinical information, including history, physical exam and plan: Yes Notes (Text): case seen and d.w staff and resident, concurred with finding and management..case seen and d.w staff and resident, concurred with finding and manageme
[2018-10-06 07:58] VITALS: BP 133/83; PULSE 60; O2SAT 96
[2018-10-06] MEDS: Enoxaparin 40 mg Syringe SC SCH (10:06)
[2018-10-06] MEDS: Azithromycin 500 MG in Sodium Chloride 0.9% 250 ML IVPB SCH (10:07)
[2018-10-06] MEDS: Pantoprazole 40 mg EC Tab PO SCH (10:07)
[2018-10-06] MEDS: cefTRIAXone IV 1 gm in Dextros 50 ML IVPB SCH (11:05)
--- NOTE | 2018-10-06 16:44 | CP.PCM.PN ---
Subjective - Date & Time of Evaluation Date of Evaluation: 10/06/18 Time of Evaluation: 10:16 - Subjective Subjective: patient seen today no nausea, no vomiting, no dizziness, no fever, no shortness of breath, no diarrhea Objective - Vital Signs/Intake and Output Vital Signs (last 24 hours): Temp Pulse Resp BP Pulse Ox 98.4 F 60 20 133/83 96 10/06/18 07:00 10/06/18 07:00 10/06/18 07:00 10/06/18 07:00 10/06/18 07:00 Intake and Output: 10/06/18 10/06/18 06:59 18:59 Intake Total 650 850 Balance 650 850 - Medications Medications: Current Medications Al Hydrox/Mg Hydrox/Simethicone (Maalox 30 Ml) 30 ml PO TID PRN PRN Reason: Indigestion / Heartburn Albuterol/Ipratropium (Duoneb 3 Mg/0.5 Mg (3 Ml) Ud) 3 ml INH RQ6 [facility] Last Admin: 10/06/18 13:13 Dose: 3 ml Clonidine HCl (Catapres) 0.1 mg PO Q4 PRN PRN Reason: COWS Score More or Equal to 5 Dicyclomine HCl (Bentyl) 10 mg PO Q6 PRN PRN Reason: Muscle spasm Enoxaparin Sodium (Lovenox) 40 mg SC DAILY [facility] Last Admin: 10/06/18 10:06 Dose: Not Given Hydroxyzine HCl (Atarax) 50 mg PO Q6H PRN PRN Reason: Anxiety Ceftriaxone Sodium (Rocephin Iv 1 Gm Duplex) 50 mls @ 100 mls/hr IVPB DAILY [facility]; Protocol Last Admin: 10/06/18 11:05 Dose: 100 mls/hr Azithromycin 500 mg/ Sodium (Chloride) 250 mls @ 250 mls/hr IVPB DAILY [facility]; Protocol Last Admin: 10/06/18 10:07 Dose: 250 mls/hr Loperamide HCl (Imodium) 2 mg PO Q8 PRN PRN Reason: Diarrhea Methadone HCl (Methadone) 10 mg PO Q24H [facility]; Taper Stop: 10/08/18 08:59 Last Admin: 10/06/18 10:14 Dose: 10 mg Nicotine (Nicoderm Cq) 1 patch TD DAILY [facility] Last Admin: 10/06/18 10:06 Dose: Not Given Ondansetron HCl (Zofran Tab) 4 mg PO Q8 PRN PRN Reason: Nausea/Vomiting Pantoprazole Sodium (Protonix Ec Tab) 40 mg PO DAILY [facility] Last Admin: 10/06/18 10:07 Dose: 40 mg Trazodone HCl (Desyrel) 100 mg PO HS [facility] Last Admin: 10/05/18 21:26 Dose: Not Given - Labs Labs: 10/02/18 16:53 10/02/18 16:53 - Constitutional Appears: Well - Head Exam Head Exam: ATRAUMATIC, NORMAL INSPECTION, NORMOCEPHALIC - Eye Exam Eye Exam: EOMI, Normal appearance, PERRL Pupil Exam: NORMAL ACCOMODATION, PERRL - ENT Exam ENT Exam: Mucous Membranes Moist, Normal Exam - Neck Exam Neck Exam: Full ROM, Normal Inspection. absent: Lymphadenopathy - Respiratory Exam Respiratory Exam: Decreased Breath Sounds - Cardiovascular Exam Cardiovascular Exam: REGULAR RHYTHM, +S1, +S2 - GI/Abdominal Exam GI & Abdominal Exam: Soft, Diminished Bowel Sounds - Rectal Exam Rectal Exam: Deferred - Neurological Exam Neurological Exam: Oriented x3 Assessment and Plan (1) Opioid abuse Status: Acute (2) Opioid use disorder, severe, dependence Status: Acute (3) Pneumonia Status: Acute (4) Cardiac ischemia Status: Acute (5) Hallucinations Status: Acute (6) Heroin abuse Status: Acute (7) Peripheral edema Status: Acute - Assessment and Plan (Free Text) Plan: medications reviewed plan discussed with patient moderate complexity of care labs reviewed vitals reviewed atarax azithromycin bentyl catapress desyrel duoneb imodium lovenox maalox methadone nicoderm cq protonix ec tab rocephin iv zofran tab
--- NOTE | 2018-10-06 21:56 | CP.PCM.DIS ---
Provider - Provider Date of Admission: 10/02/18 17:54 Attending physician: Gareth Marcelo MD Consults: 10/02/18 21:21 Psychiatry Consult Routine Comment: Consulting Provider: Ian Segovia Consulting Physician: Ian Segovia Reason for Consult: detox Time Spent in preparation of Discharge (in minutes): 20 Diagnosis - Discharge Diagnosis (1) Opioid abuse Status: Acute (2) Opioid use disorder, severe, dependence Status: Acute (3) Pneumonia Status: Acute (4) Cardiac ischemia Status: Acute (5) Hallucinations Status: Acute (6) Heroin abuse Status: Acute (7) Peripheral edema Status: Acute Hospital Course - Lab Results Lab Results: Micro Results 10/02/18 17:45 Blood Blood Culture - Preliminary NO GROWTH AFTER 4 DAYS 10/02/18 16:15 Blood Blood Culture - Preliminary NO GROWTH AFTER 4 DAYS Most Recent Lab Values WBC 13.0 K/uL (4.8-10.8) H D 10/02/18 16:53 RBC 4.58 Mil/uL (4.40-5.90) 10/02/18 16:53 Hgb 14.6 g/dL (12.0-18.0) 10/02/18 16:53 Hct 43.6 % (35.0-51.0) 10/02/18 16:53 MCV 95.1 fL (80.0-94.0) H 10/02/18 16:53 MCH 31.9 pg (27.0-31.0) H 10/02/18 16:53 MCHC 33.5 g/dL (33.0-37.0) 10/02/18 16:53 RDW 15.4 % (11.5-14.5) H 10/02/18 16:53 Plt Count 200 K/uL (130-400) 10/02/18 16:53 MPV 9.5 fL (7.2-11.7) 10/02/18 16:53 Neut % (Auto) 80.1 % (50.0-75.0) H 10/02/18 16:53 Lymph % (Auto) 13.5 % (20.0-40.0) L 10/02/18 16:53 [place] % (Auto) 6.2 % (0.0-10.0) 10/02/18 16:53 Eos % (Auto) 0.0 % (0.0-4.0) 10/02/18 16:53 Baso % (Auto) 0.2 % (0.0-2.0) 10/02/18 16:53 Neut # (Auto) 10.4 K/uL (1.8-7.0) H 10/02/18 16:53 Lymph # (Auto) 1.8 K/uL (1.0-4.3) 10/02/18 16:53 [place] # (Auto) 0.8 K/uL (0.0-0.8) 10/02/18 16:53 Eos # (Auto) 0.0 K/uL (0.0-0.7) 10/02/18 16:53 Baso # (Auto) 0.0 K/uL (0.0-0.2) 10/02/18 16:53 Sodium 139 mmol/L (132-148) 10/02/18 16:53 Potassium 3.8 mmol/L (3.6-5.2) 10/02/18 16:53 Chloride 99 mmol/L (98-107) 10/02/18 16:53 Carbon Dioxide 27 mmol/L (22-30) 10/02/18 16:53 Anion Gap 17 (10-20) 10/02/18 16:53 BUN 16 mg/dL (9-20) 10/02/18 16:53 Creatinine 0.6 mg/dL (0.8-1.5) L 10/02/18 16:53 Est GFR ( Amer) > 60 10/02/18 16:53 Est GFR (Non-Af Amer) > 60 10/02/18 16:53 Random Glucose 133 mg/dL (75-110) H D 10/02/18 16:53 Calcium 9.9 mg/dl (8.6-10.4) 10/02/18 16:53 Phosphorus 3.2 mg/dL (2.5-4.5) 10/02/18 16:53 Magnesium 1.8 mg/dL (1.6-2.3) 10/02/18 16:53 Total Bilirubin 0.7 mg/dL (0.2-1.3) 10/02/18 16:53 AST 28 U/L (17-59) 10/02/18 16:53 ALT 33 U/L (21-72) 10/02/18 16:53 Alkaline Phosphatase 73 U/L (38-126) 10/02/18 16:53 Total Protein 8.0 g/dL (6.3-8.3) 10/02/18 16:53 Albumin 4.7 g/dL (3.5-5.0) 10/02/18 16:53 Globulin 3.3 gm/dL (2.2-3.9) 10/02/18 16:53 Albumin/Globulin Ratio 1.4 (1.0-2.1) 10/02/18 16:53 Urine Color Yellow (YELLOW) 10/02/18 17:01 Urine Clarity Clear (Clear) 10/02/18 17:01 Urine pH 5.0 (5.0-8.0) 10/02/18 17:01 Ur Specific [place] 1.030 (1.003-1.030) 10/02/18 17:01 Urine Protein Negative mg/dL (NEGATIVE) 10/02/18 17:01 Urine Glucose (UA) 1+ mg/dL (Normal) H 10/02/18 17:01 Urine Ketones 1+ mg/dL (NEGATIVE) H 10/02/18 17:01 Urine Blood Negative (NEGATIVE) 10/02/18 17:01 Urine Nitrate Negative (NEGATIVE) 10/02/18 17:01 Urine Bilirubin Negative (NEGATIVE) 10/02/18 17:01 Urine Urobilinogen Normal mg/dL (0.2-1.0) 10/02/18 17:01 Ur Leukocyte Esterase Neg [place]/uL (Negative) 10/02/18 17:01 Urine WBC (Auto) 2 /hpf (0-5) 10/02/18 17:01 Urine RBC (Auto) 1 /hpf (0-3) 10/02/18 17:01 Ur Squamous Epith Cells < 1 /hpf (0-5) 10/02/18 17:01 Urine Bacteria Rare (<OCC) 10/02/18 17:01 Urine Opiates Screen Positive (NEGATIVE) H 10/02/18 17:01 Urine Methadone Screen Negative (NEGATIVE) 10/02/18 17:01 Ur Barbiturates Screen Negative (NEGATIVE) 10/02/18 17:01 Ur Phencyclidine Scrn Negative (NEGATIVE) 10/02/18 17:01 Ur Amphetamines Screen Negative (NEGATIVE) 10/02/18 17:01 U Benzodiazepines Scrn Negative (NEGATIVE) 10/02/18 17:01 U Oth Cocaine Metabols Negative (NEGATIVE) 10/02/18 17:01 U Cannabinoids Screen Negative (NEGATIVE) 10/02/18 17:01 Alcohol, Quantitative < 10 mg/dl (0-10) 10/02/18 16:53 - Hospital Course Hospital Course: medications reviewed plan discussed with patient moderate complexity of care labs reviewed vitals reviewed atarax azithromycin bentyl catapress desyrel duoneb imodium lovenox maalox methadone nicoderm cq protonix ec tab rocephin iv zofran tab Young male admitted with the pneumonia got better received IV antibiotic Rocephin and Zithromax felt much better had nausea given Zofran patient eventually agreed for the discharge CAP Chest xray:right lower lobe infiltrate may represent Pneumonia Leukocytosis on admission:13.4 Blood culture ordered. Will f/u with results Medications: Azithromycin 500mg IVPB DAILY Ceftriaxeone IVPB DAILY Duonebs 3ml INH RQ6 hx of Opiate abuse UDS: positive for opiate Psychiatry Dr. Segovia consulted--> Help appreicated Medications: Clonidine .1mg PO Q4 PRN Atarax 50mg PO Q6 PRN Methadone 25mg PO Q24 H Zofran 4mg PO Q8 prn Insomnia Medications: Trazodone 100mg PO HS Tobacco use Medications: Nicoderm patch 1 patch TD DAILY ppx -Lovenox -Protonix Discharge Instructions: 1.F/u with Dr. Santy Marcelo within 5 days of discharge. 2.Return to hospital for any new or worsening symptoms. Medications: 1.Augmentin 875mg PO Q12, #14, No refills. Discharge Exam - Head Exam Head Exam: ATRAUMATIC, NORMAL INSPECTION, NORMOCEPHALIC - Eye Exam Eye Exam: EOMI, Normal appearance, PERRL Pupil Exam: NORMAL ACCOMODATION, PERRL - Respiratory Exam Respiratory Exam: Decreased Breath Sounds - Cardiovascular Exam Cardiovascular Exam: REGULAR RHYTHM, +S1, +S2 - GI/Abdominal Exam GI & Abdominal Exam: Diminished Bowel Sounds, Soft - Rectal Exam Rectal Exam: Deferred - Neurological Exam Neurological exam: Oriented x3 Discharge Plan - Discharge Medications Prescriptions: Amoxicillin/Clavulanate [Augmentin 875 MG-125 MG] 1 tab PO Q12 #14 tab - Follow Up Plan Condition: STABLE Disposition: HOME/ ROUTINE Instructions: Pneumonia, Adult (DC), Prescription Drug Abuse (DC), Amoxicillin and Clavulanate Referrals: Kellee Marcelo MD [Staff Provider] -
== END 2018-10-06 17:10 | disposition home or self-care (01) | DRG 89 ==
LOC: C.ER 15:43 → C.9E 17:54 → C.3T 21:25
PROVIDERS: ADMIT Internal Medicine Nephrology; ATTEND Internal Medicine Nephrology
DX: J18.9 Pneumonia, unspecified organism (principal); F11.23 Opioid dependence with withdrawal; R44.3 Hallucinations, unspecified; F31.9 Bipolar disorder, unspecified; F17.210 Nicotine dependence, cigarettes, uncomplicated; I25.9 Chronic ischemic heart disease, unspecified; R60.0 Localized edema; Z59.0 Homelessness